=== PATIENT | female | born 1965 | race Caucasian/White ===

== ENCOUNTER 2017-07-15 09:17 | Emergency (ER) | payer OTHER ==
[2017-07-15] MEDS ORDERED: LORazepam 2 MG/ML INJ IV STA (09:36)
[2017-07-15] MEDS ORDERED: ASPIRIN 81 MG PO STA (09:36)
[2017-07-15 09:49] LABS: Basophils % (A) 1 %; CH 29.8; CHCM 32.8; Eosinophils # (A) 0.2 k/uL (0-0.7); Eosinophils % (A) 4 %; HCT 43.8 % (34.0-46.0); HDW 2.45; HGB 14.1 gm/dL (11.4-16.0); Luc # (Auto) 0.14; Luc % (Auto) 2; Lymphocytes # (A) 2.7 k/uL (1.0-4.8); Lymphocytes % (A) 45 %; MCH 29.3 pg (25.0-35.0); MCHC 32.1 g/dL (31.0-37.0); MCV 91.3 fL (80.0-100.0); Mean Platelet Volume 7.6; Monocytes # (A) 0.4 k/uL (0-1.0); Monocytes % (A) 7 %; Neutrophils # (A) 2.5 k/uL (1.3-7.7); Neutrophils % (A) 42 %; RBC 4.79 m/uL (3.80-5.40); RDW 12.5 % (11.5-15.5); WBC (Perox) 6.05
[2017-07-15 09:58] LABS: Prothrombin Time 10.4 sec (9.0-12.0)
[2017-07-15 10:02] LABS: ALT 35 U/L (9-52); AST 19 U/L (14-36); Alkaline Phosphatase 68 U/L (38-126); Anion Gap 9 mmol/L; Blood Urea Nitrogen 14 mg/dL (7-17); Calcium 8.9 mg/dL (8.4-10.2); Carbon Dioxide 23 mmol/L (22-30); Chloride 105 mmol/L (98-107); Glucose 125 mg/dL (74-99); Magnesium 1.8 mg/dL (1.6-2.3); Non-African American GFR(MDRD) >60 (>60 ml/min/1.73 sqM); Potassium 4.2 mmol/L (3.5-5.1); Sodium 137 mmol/L (137-145); Total Bilirubin 0.2 mg/dL (0.2-1.3)
--- NOTE | 2017-07-15 10:07 | XR ---
EXAMINATION TYPE: XR chest 2V DATE OF EXAM: 07/15/2017 COMPARISON: 06/06/2015 HISTORY: Shortness of breath TECHNIQUE: Frontal and lateral views of the chest are obtained. FINDINGS: Scattered senescent parenchymal changes noted. Hyperinflation compatible with COPD. No evidence for infiltrate. No evidence for atelectasis. Heart size is stable. Mediastinal structures are stable and grossly unremarkable. No evidence for hilar prominence. Degenerative changes dorsal spine. IMPRESSION: 1. No evidence for acute pulmonary disease.
[2017-07-15] MEDS ORDERED: IPRATROPIUM-ALBUTEROL 3 ML NEB INHALATION STA (10:37)
[2017-07-15] MEDS ORDERED: MORPHINE SULFATE 10 MG/ML SYRINGE IV STA (11:21)
--- NOTE | 2017-07-15 11:30 | US ---
EXAMINATION TYPE: US venous doppler duplex LE DATE OF EXAM: 07/15/2017 11:24 AM COMPARISON: NONE CLINICAL HISTORY: Pain. SIDE PERFORMED: Bilateral TECHNIQUE: The lower extremity deep venous system is examined utilizing real time linear array sonog serene with graded compression, doppler sonography and color-flow sonography. VESSELS IMAGED: External Iliac Vein (EIV) Common Femoral Vein Deep Femoral Vein Greater Saphenous Vein * Femoral Vein Popliteal Vein Small Saphenous Vein * not visualized Proximal Calf Veins (* superficial vessels) Technically difficult study, poor venous return, patient very sensitive in groin, large body habitus, SOB. Grayscale, color doppler, spectral doppler imaging performed of the deep veins of the lower extremiti es. There is normal flow, compressibility, vascular waveforms. Right Leg: Negative for DVT Left Leg: Negative for DVT IMPRESSION: No evidence for DVT at this time.
--- NOTE | 2017-07-15 11:51 | ED ---
Arrhythmia/Palpitations HPI - General Chief Complaint: Arrhythmia/Palpitations Stated Complaint: Tachycardia Time Seen by Provider: 07/15/17 09:23 Source: patient Mode of arrival: EMS Limitations: no limitations - History of Present Illness Initial Comments: Patient complains of intermittent palpitations, as well as cough. She has a sore throat as well. She has no fevers or chills. She denies chest pressure or pain. She has no dyspnea. She has no lightheadedness or dizziness. She has had blood clots in the past, but currently denies any extremity pain or swelling. Her symptoms have been present for couple days, off and on, with no specific exacerbating or relieving factors. She has no change in vision or hearing. She denies any sick contacts. She has had no long plane or car rides. She was not doing anything when the symptoms began. - Related Data Home Medications Medication Instructions Recorded Confirmed Baclofen [Lioresal] 20 mg PO TID PRN 07/15/17 07/15/17 Morphine Sulfate ER [Ms Contin 100 mg PO Q12HR 07/15/17 07/15/17 100Mg] oxyCODONE-APAP 10-325MG [Percocet 1 tab PO BID PRN 07/15/17 07/15/17 10-325 mg] Previous Rx's Medication Instructions Recorded Doxycycline Hyclate 100 mg PO BID #20 tab 07/15/17 Allergies Allergy/AdvReac Type Severity Reaction Status Date / Time iodine Allergy Severe Anaphylaxis Verified 07/15/17 09:38 hydroxyzine [From Vistaril] Allergy Unknown Verified 07/15/17 09:38 ketorolac tromethamine Allergy Anaphylaxis Verified 07/15/17 09:38 [From Toradol] tramadol Allergy Anaphylaxis Verified 07/15/17 09:38 Review of Systems ROS Statement: Those systems with pertinent positive or pertinent negative responses have been documented in the HPI. ROS Other: All systems not noted in ROS Statement are negative. Past Medical History Past Medical History: Asthma, COPD Additional Past Medical History / Comment(s): Degenerative Disk, Spina Bifida, neuropathy History of Any Multi-Drug Resistant Organisms: None Reported Past Surgical History: Hysterectomy Additional Past Surgical History / Comment(s): Left knee x3 left shoulder x2, neck fusion, wrist surgery due to laceration Past Psychological History: Anxiety, Bipolar, Depression Smoking Status: Current every day smoker Past Alcohol Use History: None Reported Past Drug Use History: None Reported General Exam Limitations: no limitations General appearance: alert, in no apparent distress Head exam: Present: atraumatic, normocephalic, normal inspection Eye exam: Present: normal appearance, PERRL, EOMI. Absent: scleral icterus, conjunctival injection, periorbital swelling ENT exam: Present: normal exam, mucous membranes moist Neck exam: Present: normal inspection. Absent: tenderness, meningismus, lymphadenopathy Respiratory exam: Present: normal lung sounds bilaterally. Absent: respiratory distress, wheezes, rales, rhonchi, stridor Cardiovascular Exam: Present: regular rate, normal rhythm, normal heart sounds. Absent: systolic murmur, diastolic murmur, rubs, gallop, clicks GI/Abdominal exam: Present: soft, normal bowel sounds. Absent: distended, tenderness, guarding, rebound, rigid Extremities exam: Present: normal inspection, full ROM, normal capillary refill. Absent: tenderness, pedal edema, joint swelling, calf tenderness Back exam: Present: normal inspection Neurological exam: Present: alert, oriented X3, CN II-XII intact Psychiatric exam: Present: normal affect, normal mood Skin exam: Present: warm, dry, intact, normal color. Absent: rash Course Vital Signs 07/15/17 07/15/17 07/15/17 09:20 09:25 10:45 Temperature 98.9 F Pulse Rate 74 79 Respiratory 18 20 Rate Blood Pressure 187/77 121/83 O2 Sat by Pulse 96 97 Oximetry 07/15/17 07/15/17 10:57 11:05 Temperature Pulse Rate 71 73 Respiratory 18 Rate Blood Pressure O2 Sat by Pulse Oximetry EKG Findings - EKG Comments: EKG Findings:: Twelve-lead EKG is obtained, interpreted by me showing ventricular rate 69 bpm, normal MI interval and QRS, and is, no ST elevation or depression, interpreted by me as normal sinus rhythm. Medical Decision Making - Medical Decision Making Patient complains of intermittent palpitations, cough. I gave her breathing treatment. Her labs are normal. Her EKG is normal. Her chest x-rays clear. There is no evidence of any acute emergency condition. I obtained a duplex the legs which is negative for DVT bilaterally. Clinically I think she likely has an upper respiratory infection. She could also have an exacerbation of COPD, likely related to an infectious processes. I will prescribe her doxycycline to go home on. There is no indication for further workup or admission the hospital at this time. She is stable for discharge. - Lab Data Result diagrams: 07/15/17 09:35 07/15/17 09:35 Lab Results 07/15/17 07/15/17 07/15/17 Range/Units 09:35 09:35 09:35 WBC 6.0 (3.8-10.6) k/uL RBC 4.79 (3.80-5.40) m/uL Hgb 14.1 (11.4-16.0) gm/dL Hct 43.8 (34.0-46.0) % MCV 91.3 (80.0-100.0) fL MCH 29.3 (25.0-35.0) pg MCHC 32.1 (31.0-37.0) g/dL RDW 12.5 (11.5-15.5) % Plt Count 206 (150-450) k/uL Neutrophils % 42 % Lymphocytes % 45 % Monocytes % 7 % Eosinophils % 4 % Basophils % 1 % Neutrophils # 2.5 (1.3-7.7) k/uL Lymphocytes # 2.7 (1.0-4.8) k/uL Monocytes # 0.4 (0-1.0) k/uL Eosinophils # 0.2 (0-0.7) k/uL Basophils # 0.0 (0-0.2) k/uL PT 10.4 (9.0-12.0) sec INR 1.0 (<1.2) APTT 24.0 (22.0-30.0) sec Sodium 137 (137-145) mmol/L Potassium 4.2 (3.5-5.1) mmol/L Chloride 105 (98-107) mmol/L Carbon Dioxide 23 (22-30) mmol/L Anion Gap 9 mmol/L BUN 14 (7-17) mg/dL Creatinine 0.76 (0.52-1.04) mg/dL Est GFR (MDRD) Af Amer >60 (>60 ml/min/1.73 sqM) Est GFR (MDRD) Non-Af >60 (>60 ml/min/1.73 sqM) Glucose 125 H (74-99) mg/dL Calcium 8.9 (8.4-10.2) mg/dL Magnesium 1.8 (1.6-2.3) mg/dL Total Bilirubin 0.2 (0.2-1.3) mg/dL AST 19 (14-36) U/L ALT 35 (9-52) U/L Alkaline Phosphatase 68 (38-126) U/L Troponin I (0.000-0.034) ng/mL Total Protein 7.0 (6.3-8.2) g/dL Albumin 3.8 (3.5-5.0) g/dL Urine Opiates Screen (NotDetected) Ur Oxycodone Screen (NotDetected) Urine Methadone Screen (NotDetected) Ur Propoxyphene Screen (NotDetected) Ur Barbiturates Screen (NotDetected) U Tricyclic Antidepress (NotDetected) Ur Phencyclidine Scrn (NotDetected) Ur Amphetamines Screen (NotDetected) U Methamphetamines Scrn (NotDetected) U Benzodiazepines Scrn (NotDetected) Urine Cocaine Screen (NotDetected) U Marijuana (THC) Screen (NotDetected) 07/15/17 07/15/17 Range/Units 09:35 09:51 WBC (3.8-10.6) k/uL RBC (3.80-5.40) m/uL Hgb (11.4-16.0) gm/dL Hct (34.0-46.0) % MCV (80.0-100.0) fL MCH (25.0-35.0) pg MCHC (31.0-37.0) g/dL RDW (11.5-15.5) % Plt Count (150-450) k/uL Neutrophils % % Lymphocytes % % Monocytes % % Eosinophils % % Basophils % % Neutrophils # (1.3-7.7) k/uL Lymphocytes # (1.0-4.8) k/uL Monocytes # (0-1.0) k/uL Eosinophils # (0-0.7) k/uL Basophils # (0-0.2) k/uL PT (9.0-12.0) sec INR (<1.2) APTT (22.0-30.0) sec Sodium (137-145) mmol/L Potassium (3.5-5.1) mmol/L Chloride (98-107) mmol/L Carbon Dioxide (22-30) mmol/L Anion Gap mmol/L BUN (7-17) mg/dL Creatinine (0.52-1.04) mg/dL Est GFR (MDRD) Af Amer (>60 ml/min/1.73 sqM) Est GFR (MDRD) Non-Af (>60 ml/min/1.73 sqM) Glucose (74-99) mg/dL Calcium (8.4-10.2) mg/dL Magnesium (1.6-2.3) mg/dL Total Bilirubin (0.2-1.3) mg/dL AST (14-36) U/L ALT (9-52) U/L Alkaline Phosphatase (38-126) U/L Troponin I <0.012 (0.000-0.034) ng/mL Total Protein (6.3-8.2) g/dL Albumin (3.5-5.0) g/dL Urine Opiates Screen Detected H (NotDetected) Ur Oxycodone Screen Detected H (NotDetected) Urine Methadone Screen Not Detected (NotDetected) Ur Propoxyphene Screen Not Detected (NotDetected) Ur Barbiturates Screen Not Detected (NotDetected) U Tricyclic Antidepress Not Detected (NotDetected) Ur Phencyclidine Scrn Not Detected (NotDetected) Ur Amphetamines Screen Not Detected (NotDetected) U Methamphetamines Scrn Not Detected (NotDetected) U Benzodiazepines Scrn Not Detected (NotDetected) Urine Cocaine Screen Not Detected (NotDetected) U Marijuana (THC) Screen Not Detected (NotDetected) Disposition Clinical Impression: Bronchitis Disposition: HOME SELF-CARE Condition: Good Instructions: Palpitations (ED), Upper Respiratory Infection (ED) Prescriptions: Doxycycline Hyclate 100 mg PO BID #20 tab Referrals: Asael Gonzales MD [Primary Care Provider] - 1-2 days
[2017-07-15 12:11] VITALS: BP 153/83; PULSE 79; TEMP 97.9
[2017-07-15 12:32] VITALS: RESP 20
== END 2017-07-15 12:31 | disposition home or self-care (01) ==
LOC: EC 09:17
DX: J44.9 Chronic obstructive pulmonary disease, unspecified (principal); F17.200 Nicotine dependence, unspecified, uncomplicated; Z91.048 Other nonmedicinal substance allergy status; Z88.6 Allergy status to analgesic agent; Z88.8 Allergy status to other drugs, medicaments and biological substances; Z79.891 Long term (current) use of opiate analgesic
CPT/HCPCS: 36415; 94640; 93005; 80053; 83735; 84484; 85025; 85610; 85730; 80306; 71020; 93970; 99285; 96374; 96375; J2060; J2270

== ENCOUNTER → 2017-08-05 | Outpatient (CLI) | payer OTHER ==
[~2017-08-05] MED LIST: DOBUTamine DRIP for NUC MED 500 MG in DEXTROSE/WATER 1 250ML.BAG IV ONE; DOBUTamine DRIP for NUC MED 500 MG/250 ML BAG IV ONE
--- NOTE | 2017-08-05 11:51 | ECHOS ---
STRESS ECHOCARDIOGRAM DOBUTAMINE ECHOCARDIOGRAPHIC STUDY DATE OF SERVICE: 08/05/2017 MEDICATIONS:: Albuterol, morphine, Percocet, Baclofen, aspirin, Xanax. BASELINE HEART RATE: 79 BASELINE BLOOD PRESSURE: 117/59 MAXIMUM HEART RATE: 144 MAXIMUM BLOOD PRESSURE: 139/44 85% MPHR: 141 100% MPHR: 166 METS: MAXIMUM STAGE REACHED: TOTAL EXERCISE TIME: INDICATIONS: Chest pain. CLINICAL INFORMATION: Dobutamine echocardiographic study was performed. Peak heart rate of 144 was achieved. Maximum blood pressure of 139/44 mmHg was noted. The resting EKG shows normal sinus rhythm with normal AK interval and QRS duration and normal ST-T waves. No ST-segment depression suggestive of ischemia is noted. Occasional PVCs were noted. The baseline echocardiographic images reveals normal left ventricular chamber size with normal left ventricular systolic function. In the immediate postexercise period, normal increase in the wall thickness and contractility is noted. FINAL IMPRESSION: This stress echocardiographic study is negative for stress-induced ischemia. The EKG portion of the stress test is not suggestive of ischemia. MMODL / IJN: [id number] /
== END | disposition home or self-care (01) ==
LOC: RADNMMAIN 09:13
PROVIDERS: ATTEND Family Medicine
DX: R07.9 Chest pain, unspecified (principal); I49.3 Ventricular premature depolarization
CPT/HCPCS: 93017; 93350

== ENCOUNTER → 2018-02-05 | Outpatient (CLI) | payer OTHER ==
--- NOTE | 2018-02-06 09:07 | ECHOF ---
Referral Reason:I50.9 Congestive Heart failure, R60.9 Edema MEASUREMENTS -------- HEIGHT: 162.6 cm WEIGHT: 103.0 kg BP: 143/92 RVIDd: 2.4 cm (< 3.3) IVSd: 1.4 cm (0.6 - 1.1) LVIDd: 4.3 cm (3.9 - 5.3) LVPWd: 1.2 cm (0.6 - 1.1) IVSs: 1.7 cm LVIDs: 3.0 cm LVPWs: 1.7 cm LAESV Index (A-L): 12.47 ml/m Ao Diam: 2.6 cm (2.0 - 3.7) AV Cusp: 1.7 cm (1.5 - 2.6) LA Diam: 3.1 cm (2.7 - 3.8) MV EXCURSION: 12.842 mm (> 18.000) MV EF SLOPE: 66 mm/s (70 - 150) EPSS: 0.5 cm MV E Teddy: 0.80 m/s MV DecT: 267 ms MV A Teddy: 0.85 m/s MV E/A Ratio: 0.94 RAP: 5.00 mmHg RVSP: 11.80 mmHg FINDINGS -------- Sinus rhythm. This was a technically adequate study. The left ventricular size is normal. There is mild concentric left ventricular hypertrophy. Overa ll left ventricular systolic function is normal with, an EF between 55 - 60 %. The right ventricle is normal in size and function. Normal LA size by volume 22+/-6 ml/m2. The right atrium is normal in size. Aortic valve is trileaflet and is mildly thickened. There is no evidence of aortic regurgitation. There is no evidence of aortic stenosis. The mitral valve leaflets are mildly thickened. There is trace mitral regurgitation. Trace tricuspid regurgitation present. Right ventricular systolic pressure is normal at < 35 mmHg. There is no evidence of pulmonary hypertension. The pulmonic valve was not well visualized. The aortic root size is normal. Normal inferior vena cava with normal inspiratory collapse consistent with estimated right atrial pre ssure of 5 mmHg. There is no pericardial effusion. CONCLUSIONS -------- 1. Sinus rhythm. 2. This was a technically adequate study. 3. The left ventricular size is normal. 4. There is mild concentric left ventricular hypertrophy. 5. Overall left ventricular systolic function is normal with, an EF between 55 - 60 %. 6. Normal LA size by volume 22+/-6 ml/m2. 7. Aortic valve is trileaflet and is mildly thickened. 8. The mitral valve leaflets are mildly thickened. 9. There is trace mitral regurgitation. 10. Trace tricuspid regurgitation present. 11. Right ventricular systolic pressure is normal at < 35 mmHg. 12. There is no evidence of pulmonary hypertension. 13. The pulmonic valve was not well visualized. 14. The aortic root size is normal. 15. There is no pericardial effusion. [employer] DEVELOPER: Rylan Bates RDCS
== END | disposition home or self-care (01) ==
LOC: RADECHMAIN 16:38
PROVIDERS: ATTEND Family Medicine
DX: I08.0 Rheumatic disorders of both mitral and aortic valves (principal); I50.9 Heart failure, unspecified
CPT/HCPCS: 93306

== ENCOUNTER → 2018-09-09 | Outpatient (CLI) | payer OTHER ==
[2018-09-09 12:40] LABS: INR 1.1 (<1.2); Prothrombin Time 11.8 sec (9.0-12.0)
[2018-09-09 19:01] LABS: Anion Gap 4.8 mmol/L (4.00-12.00); Carbon Dioxide 25.2 mmol/L (21.6-31.8); Potassium 4.5 mmol/L (3.5-5.5)
== END | disposition home or self-care (01) ==
LOC: LABWHC1 11:21
PROVIDERS: ATTEND Internal Medicine
DX: R60.0 Localized edema (principal); Z51.81 Encounter for therapeutic drug level monitoring; Z79.01 Long term (current) use of anticoagulants
CPT/HCPCS: 36415; 80051; 82565; 84520; 85610

== ENCOUNTER → 2018-11-16 | Outpatient (CLI) | payer OTHER ==
[2018-11-16 15:45] LABS: HGB 13.8 gm/dL (11.4-16.0); MCH 29.8 pg (25.0-35.0); MCHC 32.7 g/dL (31.0-37.0); MCV 91.1 fL (80.0-100.0); Mean Platelet Volume 8.6; Platelet Count 219 k/uL (150-450); RBC 4.62 m/uL (3.80-5.40); WBC 8.6 k/uL (3.8-10.6)
[2018-11-16 15:53] LABS: Prothrombin Time 10.3 sec (9.0-12.0)
--- NOTE | 2018-11-16 15:53 | XR ---
EXAMINATION TYPE: XR chest 2V DATE OF EXAM: 11/16/2018 COMPARISON: Chest x-ray July 15, 2017. HISTORY: Cough for a few months. TECHNIQUE: Frontal and lateral views of the chest are obtained. FINDINGS: There is chronic parenchymal change without suspicious focal air space opacity, pleural ef fusion, or pneumothorax seen. The cardiac silhouette size is stable and upper limits of normal. Ante rior fusion plate lower cervical spine is redemonstrated. Surgical screw fragment left humeral head i s again seen. IMPRESSION: Chronic parenchymal changes without suspicious acute pulmonary process.
[2018-11-16 18:42] LABS: Albumin/Globulin Ratio 1.54 (1.60-3.17); Anion Gap 8.7 mmol/L (4.00-12.00); Calcium 9.1 mg/dL (8.7-10.3); Carbon Dioxide 27.3 mmol/L (21.6-31.8); Globulin 2.6 g/dL (1.6-3.3); Potassium 4.1 mmol/L (3.5-5.5); Total Bilirubin 0.2 mg/dL (0.2-1.2); Total Protein 6.6 g/dL (6.2-8.2)
[2018-11-17 21:45] LABS: Hemoglobin A1C 7.4 % (4.0-6.0)
== END | disposition home or self-care (01) ==
LOC: LABWHC1 14:58
PROVIDERS: ATTEND Internal Medicine
DX: R91.8 Other nonspecific abnormal finding of lung field (principal); R05 Cough; R53.83 Other fatigue; Z79.01 Long term (current) use of anticoagulants
CPT/HCPCS: 36415; 71046; 80053; 82175; 82570; 83036; 83655; 83825; 84439; 84443; 85027; 85610

== ENCOUNTER → 2018-12-10 | Outpatient (CLI) | payer OTHER ==
--- NOTE | 2018-12-10 12:29 | XR ---
EXAMINATION TYPE: XR cervical spine limited DATE OF EXAM: 12/10/2018 TECHNIQUE: Frontal, lateral, and open mouth view of the cervical spine are obtained. HISTORY: pain R52 history of neck surgery COMPARISON: Cervical spine x-ray August 09, 2013 FINDINGS: The cervical spine is visualized in its entirety from C1 thru the top of T1 level, it is s table and straightened in alignment without evidence of acute fracture or dislocation. The pre-verte bral soft tissue remains within normal limits. The C1-C2 articulation is within normal limits on the open mouth view. Anterior fusion plate with ossific fusion C5-C6 level is redemonstrated. There is p rominent anterior spur superior C7 endplate redemonstrated. Vertebral body heights and disc space hei ghts above and below surgical levels are satisfactory. There is increasing left lateral spurring or h eterotopic ossification C5-C6 level. Overlying soft tissue is otherwise unremarkable. IMPRESSION: As above.
--- NOTE | 2018-12-10 12:30 | XR ---
EXAMINATION TYPE: XR thoracic spine 2V DATE OF EXAM: 12/10/2018 CLINICAL HISTORY: History of neck surgery with pain TECHNIQUE: Frontal, lateral, and swimmer's view of thoracic spine are obtained. COMPARISON: None. FINDINGS: Thoracic spine show straightened alignment on lateral images without evidence of acute frac ture or dislocation. Vertebral body heights and disc space heights are preserved. Anterior fusion pl ate lower cervical spine is identified. Visualized ribs are unremarkable. Osseous structures are so mewhat demineralized. IMPRESSION: As above.
== END | disposition home or self-care (01) ==
LOC: RADXRMAIN 11:41
PROVIDERS: ATTEND Internal Medicine
DX: M46.02 Spinal enthesopathy, cervical region (principal); M81.0 Age-related osteoporosis without current pathological fracture; Z98.1 Arthrodesis status
CPT/HCPCS: 72040; 72070

== ENCOUNTER → 2023-09-02 | Outpatient (CLI) | payer OTHER ==
[2023-09-02 14:35] VITALS: BP 147/76; PULSE 79; RESP 15; TEMP 98.5
--- NOTE | 2023-09-07 07:47 | P.PAINPG ---
PQRS Measure Charge Sheet Comment: HISTORY OF PRESENT ILLNESS: A 58 yr old female w daughter at side as a referral from Dr Streeter presents today w severe and chronic LBP secondary to DDD, spondylosis and facet arthropathy without myelopathy for evaluation. Pt states pain level is provoked at 10/10 in intensity, constant, localized in the lumbar spine, predominantly axial, burning in character w occasional shooting pain towards the BL feet. Pain is provoked by sitting/ standing/ walking. Pain is alleviated by medications (Percocet 10/325mg #60, MS ER 100mg #60, Flexeril, Ibu, Xanax 0.5mg #120), PT > 15 yrs ago, physician guided home exercise, moist heat, use of a walker for ambulatory assistance, repositioning and rest. Oswestry axial pain score at 44. She has no more narcotic medications, and pt & daughter stated that the last time she was abruptly stopped of narcotics she had a heart attack and was told by physicians she is never to off of narcotic medications. She said she has tried ESIs but fell on the floor upon standing and that physicians told her she is never to get ESIs again. She also stated she has Factor Leiden V and is on Coumadin and was told if she stops Coumadin for any reason she will get a stroke. However Factor Leiden V nor Coumadin use is not included in the documentation provided from Dr Streeter's office. Daughter states she is her mother's caregiver and wants to document that her mother has cancer so she can get medications. PMH: OA, Asthma, COPD, Spina Bifida, Neuropathy, MDD/ Anxiety/ Bipolar PSH: Hysterectomy, L Knee Arthroscopy x3, L Shoulder Surgery x2, Cervical Fusion, Wrist Surgery SH: Daily tobacco use, No ETOH abuse, No illicit drug use FH: Non contributory All: See list Meds: See list REVIEW OF ORGAN SYSTEMS: CONSTITUTIONAL: No fevers or chills. No recent weight loss. NEUROLOGICAL: + numbness and tingling along the distal extremities. No seizure disorders or headaches. MUSCULOSKELETAL: + pain PSYCHIATRIC: Denies current depression or suicidal thoughts. Physical Examinations : Constitutional : Cooperative , not in acute distress . Neurologic : Cranial nerve II to XII intact. No focal neurological deficits. Psychiatric : alert & oriented x 3. Matching mood & appropriate affect. Judgment & insight intact. Musculoskeletal : Cervical Spine Motor strength in the deltoid and biceps: Normal right side. Normal Left side Motor strength biceps and the wrist extensors: Normal right side . Normal left side Motor strength in the triceps muscle: Normal right side. Normal left side Deep tendon reflexes: Normal at the biceps. Normal at Brachioradialis. Normal at triceps Vertebral body tenderness to deep palpation over Cervical facet loading test: positive bilaterally Spurling test: positive bilaterally Neck distraction test: positive bilaterally Frank sign: positive bilaterally Lumbar spine Motor strength lower extremities ,thigh and legs 5/5 Right side , 5/5 Left side Deep tendon reflexes : Normal Knee Jerk. Normal Ankle Jerk Vertebral body tenderness over Ayoub Test positive Lumbar facet Loading Test: positive Right / positive Left Range of motion of the lumbar spine Flexion 30 degrees, extension 10 degrees Straight Leg Raise test: Left/ Right positive at degree Anisa test: positive right / positive left. Severe tenderness over the Sacroiliac joint on the Right / Left sides Gaenslen test: positive bilaterally Seated flexion test: positive bilaterally. Sacral spine : Severe tenderness over the Sacroiliac joint: right side / left side Range of motion: Flexion of the lumbar spine <60 degrees Range of motion: Extension of the lumbar spine <20 degrees Gaenslen's Test positive Anisa test: positive right side / left side Thigh Thrust Test Sacral Thrust Test Imaging: Cervical and thoracic x-rays from 12/10/18 reviewed Assessment/ Plan : Cervical post laminectomy syndrome, thoracic DDD Recommendation of PT x 6 wks. Discussed w pt and daughter/ caregiver at side the intenventional procedures at this clinic. All questions answered. I have spent greater than 30 minutes on patient care today. Dr Poe was available by phone for the evaluation of this patient. The time was used to review the medical records including relevant urine studies and Prescription history (MAPs), review of the available imaging, evaluation and examination of the patient, coordination of care with the medical staff and if applicable referring physicians, as well as creation of the medical record PQRS Narrative: Smoking Status Current every day smoker Home Medications: Ambulatory Orders Albuterol Nebulized (Conc) [Ventolin Nebulized (Conc)] 2.5 mg INHALATION Q6H PRN #30 neb 07/15/17 Baclofen [Lioresal] 20 mg PO TID PRN 07/15/17 Doxycycline Hyclate 100 mg PO BID #20 tab 07/15/17 Morphine Sulfate ER [Ms Contin 100Mg] 100 mg PO Q12HR 07/15/17 oxyCODONE-APAP 10-325MG [Percocet 10-325 mg] 1 tab PO BID PRN 07/15/17 Controlled Substance Measures - Controlled Substance Measures Is patient prescribed a controlled substance at discharge?: No
== END ==
LOC: PNWHC3 13:28
PROVIDERS: ATTEND Specialist
DX: M96.1 Postlaminectomy syndrome, not elsewhere classified (principal); M51.34 Other intervertebral disc degeneration, thoracic region; Z91.041 Radiographic dye allergy status; Z88.5 Allergy status to narcotic agent; Z88.6 Allergy status to analgesic agent
CPT/HCPCS: 99211

== ENCOUNTER 2023-11-15 21:47 | Emergency (ER) | payer OTHER ==
[2023-11-15 21:58] VITALS: TEMP 98.9
--- NOTE | 2023-11-15 23:05 | ED ---
General Adult HPI - General Chief complaint: Recheck/Abnormal Lab/Rx Stated complaint: back and neck pain Time Seen by Provider: 11/15/23 21:59 Source: patient Mode of arrival: ambulatory Limitations: no limitations - History of Present Illness Initial comments: 58-year-old female presenting with chief complaint of back pain. Patient states that she has had chronic back pain for several years, she states that her pain management doctor recently retired and she is out of her medication. She previously was taking 100 mg of morphine twice daily and Percocet twice daily for breakthrough pain. She states that when she was down to 1 morphine every 48 hours in order to stretch out her remaining supply, but she ran out on the . She has been going through withdrawal symptoms. She is trying to find a new pain management doctor. - Related Data Home Medications Medication Instructions Recorded Confirmed Baclofen [Lioresal] 20 mg PO TID PRN 07/15/17 07/15/17 Morphine Sulfate ER [Ms Contin 100 mg PO Q12HR 07/15/17 07/15/17 100Mg] oxyCODONE-APAP 10-325MG [Percocet 1 tab PO BID PRN 07/15/17 07/15/17 10-325 mg] Previous Rx's Medication Instructions Recorded Albuterol Nebulized (Conc) 2.5 mg INHALATION Q6H PRN #30 neb 07/15/17 [Ventolin Nebulized (Conc)] Doxycycline Hyclate 100 mg PO BID #20 tab 07/15/17 HYDROcodone/APAP 5-325MG [[place] 1 tab PO Q6HR PRN 3 Days #12 tab 11/15/23 5-325] Allergies Allergy/AdvReac Type Severity Reaction Status Date / Time iodine Allergy Severe Anaphylaxis Verified 11/15/23 21:56 hydroxyzine [From Vistaril] Allergy Unknown Verified 11/15/23 21:56 ketorolac tromethamine Allergy Anaphylaxis Verified 11/15/23 21:56 [From Toradol] tramadol Allergy Anaphylaxis Verified 11/15/23 21:56 Review of Systems ROS Statement: Those systems with pertinent positive or pertinent negative responses have been documented in the HPI. ROS Other: All systems not noted in ROS Statement are negative. Past Medical History Past Medical History: Asthma, COPD Additional Past Medical History / Comment(s): Degenerative Disk, Spina Bifida, neuropathy History of Any Multi-Drug Resistant Organisms: None Reported Past Surgical History: Hysterectomy Additional Past Surgical History / Comment(s): Left knee x3 left shoulder x2, neck fusion, wrist surgery due to laceration Past Psychological History: Anxiety, Bipolar, Depression Smoking Status: Current every day smoker Past Alcohol Use History: None Reported Past Drug Use History: None Reported General Exam Limitations: no limitations General appearance: alert, in no apparent distress Head exam: Present: atraumatic, normocephalic Eye exam: Present: normal appearance ENT exam: Present: normal oropharynx Neck exam: Present: normal inspection Respiratory exam: Absent: respiratory distress Cardiovascular Exam: Present: regular rate Extremities exam: Present: normal inspection, full ROM Neurological exam: Present: alert, oriented X3 Psychiatric exam: Present: normal affect, normal mood Skin exam: Present: warm, dry Course Vital Signs 11/15/23 11/15/23 21:55 23:20 Temperature 98.9 F Pulse Rate 112 H 92 Respiratory 20 13 Rate Blood Pressure 146/86 122/75 O2 Sat by Pulse 96 97 Oximetry Medical Decision Making - Medical Decision Making Was pt. sent in by a medical professional or institution (, PA, [employer], urgent care, hospital, or jail...) When possible be specific @ -No Did you speak to anyone other than the patient for history (EMS, parent, family, police, friend...)? What history was obtained from this source @ -No Did you review nursing and triage notes (agree or disagree)? Why? @ -I reviewed and agree with nursing and triage notes Were old charts reviewed (outside hosp., previous admission, EMS record, old EKG, old radiological studies, urgent care reports/EKG's, jail records)? Report findings @ -No old charts were reviewed Differential Diagnosis (chest pain, altered mental status, abdominal pain women, abdominal pain men, vaginal bleeding, weakness, fever, dyspnea, syncope, headache, dizziness, GI bleed, back pain, seizure, CVA, palpatations, mental health, musculoskeletal)? @ -Not applicable EKG interpreted by me (3pts min.). @ -As above X-rays interpreted by me (1pt min.). @ -None done CT interpreted by me (1pt min.). @ -None done U/S interpreted by me (1pt. min.). @ -None done What testing was considered but not performed or refused? (CT, X-rays, U/S, labs)? Why? @ -None What meds were considered but not given or refused? Why? @ -None Did you discuss the management of the patient with other professionals (professionals i.e. , PA, [employer], lab, RT, psych nurse, social services technician, woods superintendent, teacher, medical scientific officer, hospice case manager)? Give summary @ -No Was smoking cessation discussed for >3mins.? @ -No Was critical care preformed (if so, how long)? @ -No Were there social determinants of health that impacted care today? How? (Homelessness, low income, unemployed, alcoholism, drug addiction, transportation, low edu. Level, literacy, decrease access to med. care, [facility], rehab)? @ -No Was there de-escalation of care discussed even if they declined (Discuss DNR or withdrawal of care, Hospice)? DNR status @ -No What co-morbidities impacted this encounter? (DM, HTN, Smoking, COPD, CAD, Cancer, CVA, ARF, Chemo, Hep., AIDS, mental health diagnosis, sleep apnea, morbid obesity)? @ -None Was patient admitted / discharged? Hospital course, mention meds given and route, prescriptions, significant lab abnormalities, going to OR and other pertinent info. @ -58-year-old female presenting with chief complaint of chronic pain. Patient has history of chronic back pain, her pain management doctor retired and she recently ran out of her medication. She states that she is going through withdrawal. She was on 100 mg of morphine twice a day and Percocet twice a day. She is looking for a new pain management doctor. Patient is provided with short course of pain medication and referral to pain management. Discharged home. Follow-up with PCP. Report back to ER with any new or worsening symptoms. Discussed return parameters and answered all questions. Patient conveyed verbal understanding and agreed to the plan. I discussed this case in detail with my attending Dr. Bañuelos Undiagnosed new problem with uncertain prognosis? @ -No Drug Therapy requiring intensive monitoring for toxicity (Heparin, Nitro, Insulin, Cardizem)? @ -No Were any procedures done? @ -No Diagnosis/symptom? @ -Chronic pain Acute, or Chronic, or Acute on Chronic? @ -Acute on chronic Uncomplicated (without systemic symptoms) or Complicated (systemic symptoms)? @ -Uncomplicated Side effects of treatment? @ -No Exacerbation, Progression, or Severe Exacerbation? @ -No Poses a threat to life or bodily function? How? (Chest pain, [place], [place], pneumonia, PE, COPD, DKA, ARF, appy, cholecystitis, CVA, Diverticulitis, Homicidal, Suicid al, threat to staff... and all critical care pts) @ -No Disposition Clinical Impression: Chronic pain Disposition: HOME SELF-CARE Condition: Good Instructions (If sedation given, give patient instructions): Pain Management (ED) Additional Instructions: Follow-up with PCP. Report back to ER with any new or worsening symptoms. Prescriptions: HYDROcodone/APAP 5-325MG [[place] 5-325] 1 tab PO Q6HR PRN 3 Days #12 tab PRN Reason: Pain Is patient prescribed a controlled substance at d/c from ED?: No Referrals: Arash Boone MD [Primary Care Provider] - 1-2 days Bigg Poe MD [STAFF PHYSICIAN] - 1-2 days Time of Disposition: 23:02
[2023-11-15] MEDS: MORPHINE SULFATE 4 MG/ML SYRINGE IM STA (23:10)
[2023-11-15 23:41] VITALS: BP 122/75; PULSE 92; RESP 13
== END 2023-11-15 23:20 | disposition home or self-care (01) ==
LOC: EC 21:47
DX: G89.29 Other chronic pain (principal); M54.9 Dorsalgia, unspecified; J44.89 Other specified chronic obstructive pulmonary disease; F17.200 Nicotine dependence, unspecified, uncomplicated; Z86.59 Personal history of other mental and behavioral disorders; Z91.041 Radiographic dye allergy status; Z88.6 Allergy status to analgesic agent; Z88.5 Allergy status to narcotic agent; Z88.8 Allergy status to other drugs, medicaments and biological substances
CPT/HCPCS: 99283; 96372; J2270

== ENCOUNTER 2023-12-01 11:05 | Emergency (ER) | payer OTHER ==
[2023-12-01] MEDS: HYDROcodone/APAP 5-325MG 1 EACH TAB PO STA (11:46)
[2023-12-01 11:47] VITALS: BP 145/91; PULSE 84; RESP 16; TEMP 98.5
--- NOTE | 2023-12-01 11:48 | ED ---
Neck Injury/Pain HPI - General Chief Complaint: Neck Pain/Injury Stated Complaint: pain management Time Seen by Provider: 12/01/23 11:15 Mode of arrival: ambulatory Limitations: no limitations - History of Present Illness Initial Comments: Patient is a 58-year-old female presented to the ER with a chief complaint of medication refill. She states she typically follows up with pain management but her doctor recently retired. She was prescribed morphoine 100mg twice daily and percocet 10. She states she has been out for months. She reports she was seen here and received Waldwick which helped with her pain. She reports she is told to follow-up with in the next 1 to 2 weeks. Denies any bowel or bladder incontinence, saddle paresthesias, radiating pain, fevers, history of IV drug use or new symptoms with her pain. - Related Data Home Medications Medication Instructions Recorded Confirmed Baclofen [Lioresal] 20 mg PO TID PRN 07/15/17 07/15/17 Morphine Sulfate ER [Ms Contin 100 mg PO Q12HR 07/15/17 07/15/17 100Mg] oxyCODONE-APAP 10-325MG [Percocet 1 tab PO BID PRN 07/15/17 07/15/17 10-325 mg] Previous Rx's Medication Instructions Recorded Albuterol Nebulized (Conc) 2.5 mg INHALATION Q6H PRN #30 neb 07/15/17 [Ventolin Nebulized (Conc)] Doxycycline Hyclate 100 mg PO BID #20 tab 07/15/17 HYDROcodone/APAP 5-325MG [[place] 1 tab PO Q6HR PRN 3 Days #12 tab 11/15/23 5-325] Cyclobenzaprine [Flexeril] 5 mg PO TID PRN #15 tablet 12/01/23 HYDROcodone/APAP 5-325MG [[place] 5] 1 each PO Q6HR PRN #12 tab 12/01/23 Lidocaine 5% Patch [Lidoderm 5% 1 each TP DAILY #10 patch 12/01/23 Patch] Allergies Allergy/AdvReac Type Severity Reaction Status Date / Time iodine Allergy Severe Anaphylaxis Verified 11/15/23 21:56 hydroxyzine [From Vistaril] Allergy Unknown Verified 11/15/23 21:56 ketorolac tromethamine Allergy Anaphylaxis Verified 11/15/23 21:56 [From Toradol] tramadol Allergy Anaphylaxis Verified 11/15/23 21:56 Review of Systems ROS Statement: Those systems with pertinent positive or pertinent negative responses have been documented in the HPI. ROS Other: All systems not noted in ROS Statement are negative. Past Medical History Past Medical History: Asthma, COPD Additional Past Medical History / Comment(s): Degenerative Disk, Spina Bifida, neuropathy History of Any Multi-Drug Resistant Organisms: None Reported Past Surgical History: Hysterectomy Additional Past Surgical History / Comment(s): Left knee x3 left shoulder x2, neck fusion, wrist surgery due to laceration Past Psychological History: Anxiety, Bipolar, Depression Smoking Status: Current every day smoker Past Alcohol Use History: None Reported Past Drug Use History: None Reported General Exam Limitations: no limitations General appearance: alert, in no apparent distress Head exam: Present: atraumatic, normocephalic, normal inspection Eye exam: Present: normal appearance, PERRL, EOMI. Absent: scleral icterus, conjunctival injection, periorbital swelling ENT exam: Present: normal exam, mucous membranes moist Neck exam: Present: normal inspection. Absent: tenderness, meningismus, lymphadenopathy Respiratory exam: Present: normal lung sounds bilaterally. Absent: respiratory distress, wheezes, rales, rhonchi, stridor Cardiovascular Exam: Present: regular rate, normal rhythm, normal heart sounds. Absent: systolic murmur, diastolic murmur, rubs, gallop, clicks Back exam: Present: normal inspection Neurological exam: Present: alert, oriented X3, CN II-XII intact Psychiatric exam: Present: normal affect, normal mood Skin exam: Present: warm, dry, intact, normal color. Absent: rash Course Vital Signs 12/01/23 11:21 Temperature 98.5 F Pulse Rate 84 Respiratory 16 Rate Blood Pressure 145/91 O2 Sat by Pulse 93 L Oximetry Medical Decision Making - Medical Decision Making Was pt. sent in by a medical professional or institution (, PA, [employer]IER, urgent care, hospital, or assisted...) When possible be specific @ -No Did you speak to anyone other than the patient for history (EMS, parent, family, police, friend...)? What history was obtained from this source @ -No Did you review nursing and triage notes (agree or disagree)? Why? @ -I reviewed and agree with nursing and triage notes Were old charts reviewed (outside hosp., previous admission, EMS record, old EKG, old radiological studies, urgent care reports/EKG's, assisted records)? Report findings @ -No old charts were reviewed Differential Diagnosis (chest pain, altered mental status, abdominal pain women, abdominal pain men, vaginal bleeding, weakness, fever, dyspnea, syncope, headache, dizziness, GI bleed, back pain, seizure, CVA, palpatations, mental health, musculoskeletal)? @ -Differential Back Pain:Strain, zoster, cauda equina syndrome, epidural abscess, vertebral osteomyelitis, discitis, fracture, subluxation, disc herniation, DJD, spinal stenosis, dissection, AAA, pancreatitis, peptic ulcer disease, pyelonephritis, kidney stone, this is not meant to be an all-inclusive list. EKG interpreted by me (3pts min.). @ -None X-rays interpreted by me (1pt min.). @ -None done CT interpreted by me (1pt min.). @ -None done U/S interpreted by me (1pt. min.). @ -None done What testing was considered but not performed or refused? (CT, X-rays, U/S, labs)? Why? @ -CT considered but not performed due to no new symptoms. Patient refused as well. What meds were considered but not given or refused? Why? @ -None Did you discuss the management of the patient with other professionals (professionals i.e. , PA, G[employer] STATION CASHIER, lab, RT, psych nurse, nursing home social worker, manager investment, teacher, building drafting officer, case management director)? Give summary @ -No Was smoking cessation discussed for >3mins.? @ -No Was critical care preformed (if so, how long)? @ -No Were there social determinants of health that impacted care today? How? (Homelessness, low income, unemployed, alcoholism, drug addiction, transportation, low edu. Level, literacy, decrease access to med. care, long-term, rehab)? @ -No Was there de-escalation of care discussed even if they declined (Discuss DNR or withdrawal of care, Hospice)? DNR status @ -No What co-morbidities impacted this encounter? (DM, HTN, Smoking, COPD, CAD, Cancer, CVA, ARF, Chemo, Hep., AIDS, mental health diagnosis, sleep apnea, morbid obesity)? @ -None Was patient admitted / discharged? Hospital course, mention meds given and route, prescriptions, significant lab abnormalities, going to OR and other pertinent info. @ -Discharge. Patient is a 58-year-old female presented to ER with chief complaint of back pain. History and physical exam completed. Vital stable. Patient in no signs of acute distress and nontoxic-appearing. No red flag back pain symptoms indicative of cauda equina syndrome. CT not performed due to no change in symptoms and patient refused. Patient reports she is following up with Dr. Millard soon. Patient prescribed Waldwick, Flexeril and lidocaine pat ches. MAPs 340. Strict return parameters discussed. Patient discharged stable condition with follow-up to Dr. Millard. Patient expressed understanding and agreement with care plan. Case discussed with ED attending, Dr. Rodriguez. Case discussed with ED attending, Dr. Rodriguez. Undiagnosed new problem with uncertain prognosis? @ -No Drug Therapy requiring intensive monitoring for toxicity (Heparin, Nitro, Insulin, Cardizem)? @ -No Were any procedures done? @ -No Diagnosis/symptom? @ -Back pain Acute, or Chronic, or Acute on Chronic? @ -Chronic Uncomplicated (without systemic symptoms) or Complicated (systemic symptoms)? @ -Uncomplicated Side effects of treatment? @ -No Exacerbation, Progression, or Severe Exacerbation? @ -No Poses a threat to life or bodily function? How? (Chest pain, [place], [place], pneumonia, PE, COPD, DKA, ARF, appy, cholecystitis, CVA, Diverticulitis, Homicidal, Suicidal, threat to staff... and all critical care pts) @ -No Disposition Clinical Impression: Chronic pain Disposition: HOME SELF-CARE Condition: Stable Instructions (If sedation given, give patient instructions): Pain Management (ED), Chronic Pain (ED) Additional Instructions: Please follow-up with Dr. Millard as scheduled. Return to the ER for any new or worsening symptoms. Prescriptions: Cyclobenzaprine [Flexeril] 5 mg PO TID PRN #15 tablet PRN Reason: Muscle Spasm Lidocaine 5% Patch [Lidoderm 5% Patch] 1 each TP DAILY #10 patch HYDROcodone/APAP 5-325MG [[place] 5] 1 each PO Q6HR PRN #12 tab PRN Reason: Pain Is patient prescribed a controlled substance at d/c from ED?: Yes When asked, does pt state using other controlled substances?: No If prescribed controlled substance>3 days was MAPS reviewed?: Prescribed <3 Days If opioid is for acute pain is fill amount 7 days or less?: Yes If Rx opioid, was Start Talking consent form obtained?: Yes Referrals: Priyanka Boone DO [Primary Care Provider] - 1-2 days Julia Millard MD [Medical Doctor] - 1-2 days Time of Disposition: 11:47
== END 2023-12-01 11:54 | disposition home or self-care (01) ==
LOC: EC 11:05
DX: G89.29 Other chronic pain (principal); M54.9 Dorsalgia, unspecified; F17.200 Nicotine dependence, unspecified, uncomplicated; Z91.041 Radiographic dye allergy status; Z88.6 Allergy status to analgesic agent; Z88.5 Allergy status to narcotic agent; Z88.8 Allergy status to other drugs, medicaments and biological substances
CPT/HCPCS: 99283

== ENCOUNTER 2023-12-12 14:43 | Emergency (ER) | payer OTHER ==
[2023-12-12 15:39] VITALS: RESP 16; TEMP 98.2
--- NOTE | 2023-12-12 15:40 | ED ---
General Adult HPI - General Chief complaint: Neck Pain/Injury Stated complaint: neck pain Time Seen by Provider: 12/12/23 15:05 Source: patient, RN notes reviewed Mode of arrival: ambulatory Limitations: no limitations - History of Present Illness Initial comments: 58-year-old female presents to the emergency department for evaluation of neck pain. Patient states that she has a history of chronic neck issues with a history of spinal cord injury. She reports having plates and screws in her back. Reports her previous spine surgeon has retired so she is working on getting in with [facility]. She also reports that her pain management is no longer in practice and she has an appointment with a new painter chassis on February 04. At this point she is out of her medication for pain control. She denies any new numbness or tingling in her extremities, weakness in her extremities. - Related Data Home Medications Medication Instructions Recorded Confirmed Baclofen [Lioresal] 20 mg PO TID PRN 07/15/17 07/15/17 Morphine Sulfate ER [Ms Contin 100 mg PO Q12HR 07/15/17 07/15/17 100Mg] oxyCODONE-APAP 10-325MG [Percocet 1 tab PO BID PRN 07/15/17 07/15/17 10-325 mg] Previous Rx's Medication Instructions Recorded Albuterol Nebulized (Conc) 2.5 mg INHALATION Q6H PRN #30 neb 07/15/17 [Ventolin Nebulized (Conc)] Doxycycline Hyclate 100 mg PO BID #20 tab 07/15/17 HYDROcodone/APAP 5-325MG [[place] 1 tab PO Q6HR PRN 3 Days #12 tab 11/15/23 5-325] Cyclobenzaprine [Flexeril] 5 mg PO TID PRN #15 tablet 12/01/23 HYDROcodone/APAP 5-325MG [[place] 5] 1 each PO Q6HR PRN #12 tab 12/01/23 Lidocaine 5% Patch [Lidoderm 5% 1 each TP DAILY #10 patch 12/01/23 Patch] Cyclobenzaprine [Flexeril] 10 mg PO TID PRN #15 tab 12/12/23 HYDROcodone/APAP 5-325MG [[place] 5] 1 each PO Q6HR PRN #12 tab 12/12/23 predniSONE 50 mg PO DAILY #5 tab 12/12/23 Allergies Allergy/AdvReac Type Severity Reaction Status Date / Time iodine Allergy Severe Anaphylaxis Verified 11/15/23 21:56 hydroxyzine [From Vistaril] Allergy Unknown Verified 11/15/23 21:56 ketorolac tromethamine Allergy Anaphylaxis Verified 11/15/23 21:56 [From Toradol] tramadol Allergy Anaphylaxis Verified 11/15/23 21:56 Review of Systems ROS Statement: Those systems with pertinent positive or pertinent negative responses have been documented in the HPI. ROS Other: All systems not noted in ROS Statement are negative. Past Medical History Past Medical History: Asthma, COPD Additional Past Medical History / Comment(s): Degenerative Disk, Spina Bifida, neuropathy History of Any Multi-Drug Resistant Organisms: None Reported Past Surgical History: Hysterectomy Additional Past Surgical History / Comment(s): Left knee x3 left shoulder x2, neck fusion, wrist surgery due to laceration Past Psychological History: Anxiety, Bipolar, Depression Smoking Status: Current every day smoker Past Alcohol Use History: None Reported Past Drug Use History: None Reported General Exam Limitations: no limitations General appearance: alert, in no apparent distress Head exam: Present: atraumatic, normocephalic, normal inspection Eye exam: Present: normal appearance, PERRL, EOMI. Absent: scleral icterus, conjunctival injection, periorbital swelling ENT exam: Present: normal exam, mucous membranes moist Neck exam: Present: normal inspection. Absent: tenderness, meningismus, lymphadenopathy Respiratory exam: Present: normal lung sounds bilaterally Cardiovascular Exam: Present: regular rate, normal rhythm, normal heart sounds. Absent: systolic murmur, diastolic murmur, rubs, gallop, clicks GI/Abdominal exam: Present: soft, normal bowel sounds. Absent: distended, tenderness, guarding, rebound, rigid Extremities exam: Present: normal inspection, full ROM, normal capillary refill. Absent: tenderness, pedal edema, joint swelling, calf tenderness Back exam: Present: normal inspection Neurological exam: Present: alert, oriented X3 Psychiatric exam: Present: normal affect, normal mood Skin exam: Present: warm, dry, intact, normal color. Absent: rash Course Vital Signs 12/12/23 12/12/23 12/12/23 14:59 15:12 15:48 Temperature 98.3 F 98.2 F Pulse Rate 105 H 100 104 H Respiratory 20 16 16 Rate Blood Pressure 186/109 175/107 131/90 O2 Sat by Pulse 97 95 98 Oximetry 12/12/23 18:00 Temperature Pulse Rate 78 Respiratory 16 Rate Blood Pressure 131/74 O2 Sat by Pulse 97 Oximetry Medical Decision Making - Medical Decision Making Was pt. sent in by a medical professional or institution (VALENTINE Bernardo, DAYCARE DIRECTOR, urgent care, hospital, or alf...) When possible be specific @ -No Did you speak to anyone other than the patient for history (EMS, parent, family, police, friend...)? What history was obtained from this source @ -No Did you review nursing and triage notes (agree or disagree)? Why? @ -I reviewed and agree with nursing and triage notes Were old charts reviewed (outside hosp., previous admission, EMS record, old EKG, old radiological studies, urgent care reports/EKG's, alf records)? Report findings @ -No old charts were reviewed Differential Diagnosis (chest pain, altered mental status, abdominal pain women, abdominal pain men, vaginal bleeding, weakness, fever, dyspnea, syncope, headache, dizziness, GI bleed, back pain, seizure, CVA, palpatations, mental health, musculoskeletal)? @ -Differential Back Pain: Strain, zoster, cauda equina syndrome, epidural abscess, vertebral osteomyelitis, discitis, fracture, subluxation, disc herniation, DJD, spinal stenosis, dissection, AAA, pancreatitis, peptic ulcer disease, pyelonephritis, kidney stone, this is not meant to be an all-inclusive list. EKG interpreted by me (3pts min.). @ -None X-rays interpreted by me (1pt min.). @ -X-ray of the cervical spine shows no evidence of acute fracture, cervical changes intact, foraminal encroachment CT interpreted by me (1pt min.). @ -None done U/S interpreted by me (1pt. min.). @ -None done What testing was considered but not performed or refused? (CT, X-rays, U/S, labs)? Why? @ -None What meds were considered but not given or refused? Why? @ -None Did you discuss the management of the patient with other professionals (professionals i.e. VALENTINE Bernardo, DAYCARE DIRECTOR, lab, RT, psych nurse, social media manager, bill board poster, teacher, juvenile corrections officer, caseworker protective services)? Give summary @ -No Was smoking cessation discussed for >3mins.? @ -No Was critical care preformed (if so, how long)? @ -No Were there social determinants of health that impacted care today? How? (Homelessness, low income, unemployed, alcoholism, drug addiction, transportation, low edu. Level, literacy, decrease access to med. care, fdc, rehab)? @ -No Was there de-escalation of care discussed even if they declined (Discuss DNR or withdrawal of care, Hospice)? DNR status @ -No What co-morbidities impacted this encounter? (DM, HTN, Smoking, COPD, CAD, Cancer, CVA, ARF, Chemo, Hep., AIDS, mental health diagnosis, sleep apnea, morbid obesity)? @ -None Was patient admitted / discharged? Hospital course, mention meds given and route, prescriptions, significant lab abnormalities, going to OR and other pertinent info. @ -Discharge. Patient presented to the emergency department for evaluation of neck pain. She has a history of chronic neck pain and follows with orthopedics for this. She has had surgery on her neck in the past. She is concerned about the hardware being in place. X-rays obtained which show hardware intact, no acute fracture, foraminal encroachment. Patient was provided medication for pain control in the ED. She was also provided a short course of medication for home. Advised to follow-up with her pain remote control mirror installer and accounts receivable specialist. Patient is understanding agreeable with plan. Patient stable at time of discharge. Case discussed with Dr. Rodriguez. Undiagnosed new problem with uncertain prognosis? @ -No Drug Therapy requiring intensive monitoring for toxicity (Heparin, Nitro, Insulin, Cardizem)? @ -No Were any procedures done? @ -No Diagnosis/symptom? @ -Neck pain Acute, or Chronic, or Acute on Chronic? @ -Acute on chronic Uncomplicated (without systemic symptoms) or Complicated (systemic symptoms)? @ -uncomplicated Side effects of treatment? @ -No Exacerbation, Progression, or Severe Exacerbation? @ -No Poses a threat to life or bodily function? How? (Chest pain, [place], [place], pneumonia, PE, COPD, DKA, ARF, appy, cholecystitis, CVA, Diverticulitis, Homicidal, Suicidal, threat to staff... and all critical care pts) @ -No Disposition Clinical Impression: Neck pain Disposition: HOME SELF-CARE Condition: Stable Instructions (If sedation given, give patient instructions): Cervical Strain (ED) Additional Instructions: Please follow up with your primary care provider and pain specialist. Return to the ER for new or worsening symptoms. Prescriptions: Cyclobenzaprine [Flexeril] 10 mg PO TID PRN #15 tab PRN Reason: Muscle Spasm HYDROcodone/APAP 5-325MG [[place] 5] 1 each PO Q6HR PRN #12 tab PRN Reason: Pain predniSONE 50 mg PO DAILY #5 tab Is patient prescribed a controlled substance at d/c from ED?: Yes When asked, does pt state using other controlled substances?: No If prescribed controlled substance>3 days was MAPS reviewed?: Prescribed <3 Days Referrals: Priyanka Boone DO [Primary Care Provider] - 1-2 days
[2023-12-12] MEDS: LIDOCAINE 4% PATCH TOPICAL ONE (15:44)
[2023-12-12] MEDS: MORPHINE SULFATE 4 MG/ML SYRINGE IM STA (16:06)
--- NOTE | 2023-12-12 16:23 | XR ---
EXAMINATION TYPE: XR cervical spine comp DATE OF EXAM: 12/12/2023 COMPARISON: 12/10/2018 HISTORY: Pain TECHNIQUE: Four views are submitted. FINDINGS: The odontoid is intact. There are no compression deformities. The prevertebral soft tissue structur es are within normal limits. Postsurgical change compatible with ACDF. Diffuse osteopenia with degen erative change C6-C7 and C7-T1. Multilevel facet arthropathy. Upper lungs are clear with findings suggestive of chronic interstitial lung disease. Soft tissue ossi fication adjacent to the lateral margin of the cervical spine on the left is stable may be related to soft tissue ossification or hyperostosis. There appears to be foraminal encroachment at C6-C7 bilaterally and at C4-5 and C5-C6 on the left. IMPRESSION: 1. Postsurgical change with no definite interval changes compared to the prior exam. 2. There is multilevel foraminal encroachment.
[2023-12-12] MEDS: MORPHINE SULFATE 2 MG/ML SYRINGE IM ONE (17:45)
[2023-12-12] MEDS: ACET/COD 300 MG/30 MG STARTER PACK 6 TAB BTL PO STA (18:05)
[2023-12-12 18:22] VITALS: BP 131/74; PULSE 78
== END 2023-12-12 18:00 | disposition home or self-care (01) ==
LOC: EC 14:43
DX: G89.29 Other chronic pain (principal); M54.2 Cervicalgia; F17.200 Nicotine dependence, unspecified, uncomplicated; Z88.5 Allergy status to narcotic agent; Z88.8 Allergy status to other drugs, medicaments and biological substances; Z91.041 Radiographic dye allergy status
CPT/HCPCS: 72050; 99284; 96372 ×2; J2270 ×2

== ENCOUNTER 2023-12-27 17:41 | Emergency (ER) | payer OTHER ==
--- NOTE | 2023-12-27 19:00 | ED ---
Back Pain HPI - General Chief Complaint: Back Pain/Injury Stated Complaint: Pain management Time Seen by Provider: 12/27/23 17:55 Source: patient Limitations: no limitations - History of Present Illness Initial Comments: 58-year-old female presenting to the ED with complaints of neck and back pain. Patient reports a history of chronic neck/back pain. Patient notes associated u rinary incontinence in which she has to wear a diaper for this where she uncontrollably dribbles of urine occasionally especially with cough and sneeze. Notes no new worsening of this. Denies saddle anesthesia. Reports pain is chronic in nature and states that she used to follow with a "spine diet" however this physician has retired and notes an upcoming appointment with Dr. Millard of [facility] on January 31. States that her primary care provider will not prescribe her pain medications and is just here for pain control. No recent injury or trauma or acute worsening of her symptoms. Denies fever or chills. No other complaints at this time. - Related Data Home Medications Medication Instructions Recorded Confirmed Baclofen [Lioresal] 20 mg PO TID PRN 07/15/17 07/15/17 Morphine Sulfate ER [Ms Contin 100 mg PO Q12HR 07/15/17 07/15/17 100Mg] oxyCODONE-APAP 10-325MG [Percocet 1 tab PO BID PRN 07/15/17 07/15/17 10-325 mg] Previous Rx's Medication Instructions Recorded Albuterol Nebulized (Conc) 2.5 mg INHALATION Q6H PRN #30 neb 07/15/17 [Ventolin Nebulized (Conc)] Doxycycline Hyclate 100 mg PO BID #20 tab 07/15/17 HYDROcodone/APAP 5-325MG [Avant 1 tab PO Q6HR PRN 3 Days #12 tab 11/15/23 5-325] Cyclobenzaprine [Flexeril] 5 mg PO TID PRN #15 tablet 12/01/23 HYDROcodone/APAP 5-325MG [Avant 5] 1 each PO Q6HR PRN #12 tab 12/01/23 Lidocaine 5% Patch [Lidoderm 5% 1 each TP DAILY #10 patch 12/01/23 Patch] Cyclobenzaprine [Flexeril] 10 mg PO TID PRN #15 tab 12/12/23 HYDROcodone/APAP 5-325MG [Avant 5] 1 each PO Q6HR PRN #12 tab 12/12/23 predniSONE 50 mg PO DAILY #5 tab 12/12/23 HYDROcodone/APAP 5-325MG [Avant 1 tab PO Q6HR PRN 3 Days #12 tab 12/27/23 5-325] Allergies Allergy/AdvReac Type Severity Reaction Status Date / Time iodine Allergy Severe Anaphylaxis Verified 12/27/23 17:51 hydroxyzine [From Vistaril] Allergy Unknown Verified 12/27/23 17:51 ketorolac tromethamine Allergy Anaphylaxis Verified 12/27/23 17:51 [From Toradol] tramadol Allergy Anaphylaxis Verified 12/27/23 17:51 Review of Systems ROS Statement: Those systems with pertinent positive or pertinent negative responses have been documented in the HPI. ROS Other: All systems not noted in ROS Statement are negative. Past Medical History Past Medical History: Asthma, COPD Additional Past Medical History / Comment(s): Degenerative Disk, Spina Bifida, neuropathy History of Any Multi-Drug Resistant Organisms: None Reported Past Surgical History: Hysterectomy Additional Past Surgical History / Comment(s): Left knee x3 left shoulder x2, neck fusion, wrist surgery due to laceration Past Psychological History: Anxiety, Bipolar, Depression Smoking Status: Current every day smoker Past Alcohol Use History: None Reported Past Drug Use History: None Reported General Exam Limitations: no limitations General appearance: alert, in no apparent distress Eye exam: Present: normal appearance Neck exam: Present: normal inspection Respiratory exam: Present: normal lung sounds bilaterally Cardiovascular Exam: Present: regular rate GI/Abdominal exam: Present: soft Extremities exam: Present: normal inspection, other (Strength and sensation intact in bilateral upper lower extremities. Ambulates without significant difficulty.) Neurological exam: Present: alert, oriented X3 Skin exam: Present: warm, dry Course Vital Signs 12/27/23 17:47 Temperature 98.0 F Pulse Rate 113 H Respiratory 18 Rate Blood Pressure 127/83 O2 Sat by Pulse 95 Oximetry Medical Decision Making - Medical Decision Making Was pt. sent in by a medical professional or institution (, PA, UNDERWATER WELDER, urgent care, hospital, or penitentiary...) When possible be specific @ -No Did you speak to anyone other than the patient for history (EMS, parent, family, police, friend...)? What history was obtained from this source @ -No Did you review nursing and triage notes (agree or disagree)? Why? @ -I reviewed and agree with nursing and triage notes Were old charts reviewed (outside hosp., previous admission, EMS record, old EKG, old radiological studies, urgent care reports/EKG's, penitentiary records)? Report findings @ -Reviewed prior chart showing visit here on 12/12/2023. At this time received 12 Avant fives. Also had an unremarkable cervical spine x-ray at this time. Differential Diagnosis (chest pain, altered mental status, abdominal pain women, abdominal pain men, vaginal bleeding, weakness, fever, dyspnea, syncope, headache, dizziness, GI bleed, back pain, seizure, CVA, palpatations, mental health, musculoskeletal)? @ -Differential Musculoskeletal Muscular strain, contusion, ligament sprain, fracture, arthritis, septic arthritis, bursitis, cellulitis, muscle spasm, nerve compression, DVT, arterial occlusion, herpes zoster, electrolyte abnormality, tumor.... This is not meant to be in all inclusive list EKG interpreted by me (3pts min.). @ -None X-rays interpreted by me (1pt min.). @ -None done CT interpreted by me (1pt min.). @ -None done U/S interpreted by me (1pt. min.). @ -None done What testing was considered but not performed or refused? (CT, X-rays, U/S, labs)? Why? @ -Imaging was considered however at this time patient reports pain is chronic in nature and she states that she would only like pain control. Additionally, reports no recent worsening of her symptoms. What meds were considered but not given or refused? Why? @ -None Did you discuss the management of the patient with other professionals (professionals i.e. , PA, UNDERWATER WELDER, lab, RT, psych nurse, social security assessor, tumbling and rolling supervisor, teacher, financial services officer, assistant case manager)? Give summary @ -No Was smoking cessation discussed for >3mins.? @ -No Was critical care preformed (if so, how long)? @ -No Were there social determinants of health that impacted care today? How? (Homelessness, low income, unemployed, alcoholism, drug addiction, transportation, low edu. Level, literacy, decrease access to med. care, senior living, rehab)? @ -No Was there de-escalation of care discussed even if they declined (Discuss DNR or withdrawal of care, Hospice)? DNR status @ -No What co-morbidities impacted this encounter? (DM, HTN, Smoking, COPD, CAD, Cancer, CVA, ARF, Chemo, Hep., AIDS, mental health diagnosis, sleep apnea, morbid obesity)? @ -None Was patient admitted / discharged? Hospital course, mention meds given and route, prescriptions, significant lab abnormalities, going to OR and other pertinent info. @ -Discharge 58-year-old female presenting to the ED with complaints of chronic neck and back pain with no recent worsening. No new injury or trauma as well. Reports that she would just like pain control. Patient provided analgesia here in the ED and provided short course of Avant as well. Patient was discharged home in stable condition and also provided a referral to see orthopedics. Discharged home in stable condition. Discussed return precautions with patient who verbalized agreement. Undiagnosed new problem with uncertain prognosis? @ -No Drug Therapy requiring intensive monitoring for toxicity (Heparin, Nitro, Insulin, Cardizem)? @ -No Were any procedures done? @ -No Diagnosis/symptom? @ -Neck pain/back pain Acute, or Chronic, or Acute on Chronic? @ -Acute on chronic Uncomplicated (without systemic symptoms) or Complicated (systemic symptoms)? @ -Uncomplicated Side effects of treatment? @ -No Exacerbation, Progression, or Severe Exacerbation? @ -No Poses a threat to life or bodily function? How? (Chest pain, [place], [place], pneumonia, PE, COPD, DKA, ARF, appy, cholecystitis, CVA, Diverticulitis, Homicidal, Suicidal, threat to staff... and all critical care pts) @ -No Disposition Clinical Impression: Back pain Disposition: HOME SELF-CARE Condition: Good Additional Instructions: Please return to the Emergency Department if symptoms worsen or any other concerns. Please follow up with Dr. Millard as scheduled. Please also follow-up with orthopedics. Prescriptions: HYDROcodone/APAP 5-325MG [Avant 5-325] 1 tab PO Q6HR PRN 3 Days #12 tab PRN Reason: Pain Is patient prescribed a controlled substance at d/c from ED?: Yes When asked, does pt state using other controlled substances?: No If prescribed controlled substance>3 days was MAPS reviewed?: Prescribed <3 Days (MAPS reviewed. Last opiate prescription was for Twelve (12) Avant 5 filled 12/14/23) Referrals: Priyanka Boone DO [Primary Care Provider] - 1-2 days Time of Disposition: 19:04
[2023-12-27] MEDS: ACET/COD 300 MG/30 MG STARTER PACK 6 TAB BTL PO STA (19:17)
[2023-12-27] MEDS: HYDROmorphone 1 MG/ML 1 ML SYRINGE IM STA (19:18)
[2023-12-27 19:49] VITALS: BP 128/85; PULSE 93; RESP 16; TEMP 98.4
== END 2023-12-27 19:24 | disposition home or self-care (01) ==
LOC: EC 17:41
DX: G89.29 Other chronic pain (principal); M54.9 Dorsalgia, unspecified; M54.2 Cervicalgia; Z88.5 Allergy status to narcotic agent; Z88.6 Allergy status to analgesic agent; Z88.8 Allergy status to other drugs, medicaments and biological substances
CPT/HCPCS: 99283; 96372; J1170

== ENCOUNTER 2024-01-09 15:40 | Emergency (ER) | payer OTHER ==
[2024-01-09 15:46] VITALS: TEMP 98.5
[2024-01-09] MEDS: HYDROcodone/APAP 5-325MG 1 EACH TAB PO STA (16:15)
--- NOTE | 2024-01-09 16:15 | ED ---
ENT HPI - General Chief complaint: ENT Stated complaint: Throat Pain Time Seen by Provider: 01/09/24 15:50 Source: patient, RN notes reviewed Mode of arrival: ambulatory Limitations: no limitations - History of Present Illness Initial comments: 58-year-old female presenting with sore throat x 3 days. Patient states she feels her voice is hoarse. Denies cough, rhinorrhea, fever. She is able to swallow and tolerate orals well. She is also here for pain management for chronic neck and back pain. 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 - Related Data Home Medications Medication Instructions Recorded Confirmed Baclofen [Lioresal] 20 mg PO TID PRN 07/15/17 07/15/17 Morphine Sulfate ER [Ms Contin 100 mg PO Q12HR 07/15/17 07/15/17 100Mg] oxyCODONE-APAP 10-325MG [Percocet 1 tab PO BID PRN 07/15/17 07/15/17 10-325 mg] Previous Rx's Medication Instructions Recorded Albuterol Nebulized (Conc) 2.5 mg INHALATION Q6H PRN #30 neb 07/15/17 [Ventolin Nebulized (Conc)] Doxycycline Hyclate 100 mg PO BID #20 tab 07/15/17 HYDROcodone/APAP 5-325MG [[place] 1 tab PO Q6HR PRN 3 Days #12 tab 11/15/23 5-325] Cyclobenzaprine [Flexeril] 5 mg PO TID PRN #15 tablet 12/01/23 HYDROcodone/APAP 5-325MG [[place] 5] 1 each PO Q6HR PRN #12 tab 12/01/23 Lidocaine 5% Patch [Lidoderm 5% 1 each TP DAILY #10 patch 12/01/23 Patch] Cyclobenzaprine [Flexeril] 10 mg PO TID PRN #15 tab 12/12/23 HYDROcodone/APAP 5-325MG [[place] 5] 1 each PO Q6HR PRN #12 tab 12/12/23 predniSONE 50 mg PO DAILY #5 tab 12/12/23 HYDROcodone/APAP 5-325MG [[place] 1 tab PO Q6HR PRN 3 Days #12 tab 12/27/23 5-325] Cyclobenzaprine [Flexeril] 10 mg PO TID PRN #15 tab 01/09/24 HYDROcodone/APAP 7.5-325MG [[place] 1 tab PO Q6HR PRN 3 Days #12 tab 01/09/24 7.5-325] Allergies Allergy/AdvReac Type Severity Reaction Status Date / Time iodine Allergy Severe Anaphylaxis Verified 01/09/24 15:45 hydroxyzine [From Vistaril] Allergy Unknown Verified 01/09/24 15:45 ketorolac tromethamine Allergy Anaphylaxis Verified 01/09/24 15:45 [From Toradol] tramadol Allergy Anaphylaxis Verified 01/09/24 15:45 Review of Systems ROS Statement: Those systems with pertinent positive or pertinent negative responses have been documented in the HPI. ROS Other: All systems not noted in ROS Statement are negative. Past Medical History Past Medical History: Asthma, COPD Additional Past Medical History / Comment(s): Degenerative Disk, Spina Bifida, neuropathy History of Any Multi-Drug Resistant Organisms: None Reported Past Surgical History: Hysterectomy Additional Past Surgical History / Comment(s): Left knee x3 left shoulder x2, neck fusion, wrist surgery due to laceration Past Psychological History: Anxiety, Bipolar, Depression Smoking Status: Current every day smoker Past Alcohol Use History: None Reported Past Drug Use History: None Reported General Exam Limitations: no limitations General appearance: alert, in no apparent distress Head exam: Present: atraumatic, normocephalic, normal inspection Eye exam: Present: normal appearance, PERRL, EOMI. Absent: scleral icterus, conjunctival injection, periorbital swelling ENT exam: Present: normal exam, normal oropharynx, mucous membranes moist, TM's normal bilaterally Neck exam: Present: normal inspection. Absent: tenderness, meningismus, lymphadenopathy Respiratory exam: Present: normal lung sounds bilaterally. Absent: respiratory distress, wheezes, rales, rhonchi, stridor Cardiovascular Exam: Present: regular rate, normal rhythm, normal heart sounds. Absent: systolic murmur, diastolic murmur, rubs, gallop, clicks Neurological exam: Present: alert, oriented X3 Psychiatric exam: Present: normal affect, normal mood Course Vital Signs 01/09/24 01/09/24 15:43 17:29 Temperature 98.5 F Pulse Rate 104 H 93 Respiratory 22 18 Rate Blood Pressure 156/99 128/80 O2 Sat by Pulse 97 95 Oximetry Medical Decision Making - Medical Decision Making Was pt. sent in by a medical professional or institution ([facility]ENT[facility] Bernardo, CUSTOMER COMPLAINT SERVICE SUPERVISOR, urgent care, hospital, or shelter...) When possible be specific @ -[No] Did you speak to anyone other than the patient for history (EMS, parent, family, police, friend...)? What history was obtained from this source @ -[No] Did you review nursing and triage notes (agree or disagree)? Why? @ -[I reviewed and agree with nursing and triage notes] Were old charts reviewed (outside hosp., previous admission, EMS record, old EKG, old radiological studies, urgent care reports/EKG's, shelter records)? Report findings @ -[No old charts were reviewed] Differential Diagnosis (chest pain, altered mental status, abdominal pain women, abdominal pain men, vaginal bleeding, weakness, fever, dyspnea, syncope, headache, dizziness, GI bleed, back pain, seizure, CVA, palpatations, mental health, musculoskeletal)? @ -Viral URI, streptococcal pharyngitis, pharyngitis, laryngitis EKG interpreted by me (3pts min.). @ -None X-rays interpreted by me (1pt min.). @ -[None done] CT interpreted by me (1pt min.). @ -[None done] U/S interpreted by me (1pt. min.). @ -[None done] What testing was considered but not performed or refused? (CT, X-rays, U/S, labs)? Why? @ -Recommended flu, COVID, RSV rapid testing however patient declined What meds were considered but not given or refused? Why? @ -[None] Did you discuss the management of the patient with other professionals (professionals i.e. VALENTINE Bernardo, CUSTOMER COMPLAINT SERVICE SUPERVISOR, lab, RT, psych nurse, social service coordinator, bean picker machine operator, teacher, escrow officer, case management social worker)? Give summary @ -[No] Was smoking cessation discussed for >3mins.? @ -[No] Was critical care preformed (if so, how long)? @ -[No] Were there social determinants of health that impacted care today? How? (Homelessness, low income, unemployed, alcoholism, drug addiction, transportation, low edu. Level, literacy, decrease access to med. care, group home, rehab)? @ -[No] Was there de-escalation of care discussed even if they declined (Discuss DNR or withdrawal of care, Hospice)? DNR status @ -[No] What co-morbidities impacted this encounter? (DM, HTN, Smoking, COPD, CAD, Cancer, CVA, ARF, Chemo, Hep., AIDS, mental health diagnosis, sleep apnea, morbid obesity)? @ -[None] Was patient admitted / discharged? Hospital course, mention meds given and route, prescriptions, significant lab abnormalities, going to OR and other pertinent info. @ -Patient was discharged. Patient was seen and evaluated for sore throat for 3 days. There were no sign of bacterial infection upon examination. Strep testing was negative. Patient was also seen for pain management for chronic neck and back pain. Patient was given 1 dose of [place] today. Patient was prescribed 3-day supply of [place] as well as Flexeril. Maps reviewed. Discussed with patient that she must follow-up with pain management. patient discharged in stable condition. Case discussed with Dr. Ontiveros Undiagnosed new problem with uncertain prognosis? @ -[No] Drug Therapy requiring intensive monitoring for toxicity (Heparin, Nitro, Insulin, Cardizem)? @ -[No] Were any procedures done? @ -[No] Diagnosis/symptom? @ -Viral pharyngitis, chronic neck/back pain Acute, or Chronic, or Acute on Chronic? @ -Acute Uncomplicated (without systemic symptoms) or Complicated (systemic symptoms)? @ -Complicated Side effects of treatment? @ -[No] Exacerbation, Progression, or Severe Exacerbation? @ -[No] Poses a threat to life or bodily function? How? (Chest pain, [place], [place], pneumonia, PE, COPD, DKA, ARF, appy, cholecystitis, CVA, Diverticulitis, Homicidal, Suicidal, threat to staff... and all critical care pts) @ -[No] - Lab Data Lab Results 01/09/24 Range/Units 16:10 Group A Strep (PCR) NOT DETECTED (Not Detectd) Disposition Clinical Impression: Viral pharyngitis, Back pain Disposition: HOME SELF-CARE Condition: Stable Instructions (If sedation given, give patient instructions): Pharyngitis (ED) Additional Instructions: Please return to the Emergency Department if symptoms worsen or any other concerns. Please follow-up with pain management. Prescriptions: Cyclobenzaprine [Flexeril] 10 mg PO TID PRN #15 tab PRN Reason: Muscle Spasm HYDROcodone/APAP 7.5-325MG [[place] 7.5-325] 1 tab PO Q6HR PRN 3 Days #12 tab PRN Reason: Pain Is patient prescribed a controlled substance at d/c from ED?: Yes When asked, does pt state using other controlled substances?: No If prescribed controlled substance>3 days was MAPS reviewed?: Prescribed <3 Days If opioid is for acute pain is fill amount 7 days or less?: Yes Referrals: Priyanka Boone DO [Primary Care Provider] - 1-2 days Time of Disposition: 17:28
[2024-01-09 17:43] VITALS: BP 128/80; PULSE 93; RESP 18
== END 2024-01-09 17:32 | disposition home or self-care (01) ==
LOC: EC 15:40
DX: M54.9 Dorsalgia, unspecified (principal); B97.89 Other viral agents as the cause of diseases classified elsewhere; F17.200 Nicotine dependence, unspecified, uncomplicated; Z91.041 Radiographic dye allergy status; Z88.6 Allergy status to analgesic agent; Z88.5 Allergy status to narcotic agent; Z88.8 Allergy status to other drugs, medicaments and biological substances
CPT/HCPCS: 87651; 99283

== ENCOUNTER 2024-01-17 12:54 | Emergency (ER) | payer OTHER ==
--- NOTE | 2024-01-17 14:46 | ED ---
Back Pain HPI - General Chief Complaint: Back Pain/Injury Stated Complaint: Pain Managment Time Seen by Provider: 01/17/24 14:28 Source: patient, RN notes reviewed Limitations: no limitations - History of Present Illness Initial Comments: This is a 58-year-old female who presents to the emergency department for back pain and a sore throat. Patient has a longstanding history of chronic back pain and is waiting for an appointment with Dr. Millard at the end of January. She has since been coming to the emergency department every few days for a short-term refill on her [place]. Denies any new injuries or loss of bowel/bladder control or saddle anesthesia. Additionally, she has been dealing with a sore throat for the last 1-2 weeks. States that it seems to be getting worse and she has acid and pain going down her throat as well. MD Complaint: back pain - Related Data Home Medications Medication Instructions Recorded Confirmed Baclofen [Lioresal] 20 mg PO TID PRN 07/15/17 07/15/17 Morphine Sulfate ER [Ms Contin 100 mg PO Q12HR 07/15/17 07/15/17 100Mg] oxyCODONE-APAP 10-325MG [Percocet 1 tab PO BID PRN 07/15/17 07/15/17 10-325 mg] Previous Rx's Medication Instructions Recorded Albuterol Nebulized (Conc) 2.5 mg INHALATION Q6H PRN #30 neb 07/15/17 [Ventolin Nebulized (Conc)] Doxycycline Hyclate 100 mg PO BID #20 tab 07/15/17 HYDROcodone/APAP 5-325MG [[place] 1 tab PO Q6HR PRN 3 Days #12 tab 11/15/23 5-325] Cyclobenzaprine [Flexeril] 5 mg PO TID PRN #15 tablet 12/01/23 HYDROcodone/APAP 5-325MG [[place] 5] 1 each PO Q6HR PRN #12 tab 12/01/23 Lidocaine 5% Patch [Lidoderm 5% 1 each TP DAILY #10 patch 12/01/23 Patch] Cyclobenzaprine [Flexeril] 10 mg PO TID PRN #15 tab 12/12/23 HYDROcodone/APAP 5-325MG [[place] 5] 1 each PO Q6HR PRN #12 tab 12/12/23 predniSONE 50 mg PO DAILY #5 tab 12/12/23 HYDROcodone/APAP 5-325MG [[place] 1 tab PO Q6HR PRN 3 Days #12 tab 12/27/23 5-325] Cyclobenzaprine [Flexeril] 10 mg PO TID PRN #15 tab 01/09/24 HYDROcodone/APAP 7.5-325MG [[place] 1 tab PO Q6HR PRN 3 Days #12 tab 01/09/24 7.5-325] Amoxic-Pot Clav 875-125Mg 1 tab PO Q12HR 7 Days #14 tab 01/17/24 [Augmentin 875-125] Benzonatate [Tessalon Perle] 200 mg PO TID PRN #30 capsule 01/17/24 Famotidine [Pepcid] 20 mg PO DAILY #20 tablet 01/17/24 HYDROcodone/APAP 7.5-325MG [[place] 1 tab PO Q6HR PRN 3 Days #12 tab 01/17/24 7.5-325] Nystatin 100,000 Unit/ml Susp 5 ml PO QID 7 Days #473 ml 01/17/24 [Mycostatin Oral Susp] predniSONE 50 mg PO DAILY 5 Days #5 tab 01/17/24 Allergies Allergy/AdvReac Type Severity Reaction Status Date / Time iodine Allergy Severe Anaphylaxis Verified 01/17/24 13:01 hydroxyzine [From Vistaril] Allergy Unknown Verified 01/17/24 13:01 ketorolac tromethamine Allergy Anaphylaxis Verified 01/17/24 13:01 [From Toradol] tramadol Allergy Anaphylaxis Verified 01/17/24 13:01 Review of Systems ROS Statement: Those systems with pertinent positive or pertinent negative responses have been documented in the HPI. ROS Other: All systems not noted in ROS Statement are negative. Past Medical History Past Medical History: Asthma, COPD Additional Past Medical History / Comment(s): Degenerative Disk, Spina Bifida, neuropathy History of Any Multi-Drug Resistant Organisms: None Reported Past Surgical History: Hysterectomy Additional Past Surgical History / Comment(s): Left knee x3 left shoulder x2, neck fusion, wrist surgery due to laceration Past Psychological History: Anxiety, Bipolar, Depression Smoking Status: Current every day smoker Past Alcohol Use History: None Reported Past Drug Use History: None Reported General Exam Limitations: no limitations General appearance: alert, in no apparent distress Head exam: Present: atraumatic, normocephalic, normal inspection ENT exam: Present: other (Posterior pharyngeal erythema with tonsillar hypertrophy and exudates. There are also white patches on her tongue.) Respiratory exam: Present: normal lung sounds bilaterally. Absent: respiratory distress, wheezes, rales, rhonchi, stridor Cardiovascular Exam: Present: regular rate, normal rhythm, normal heart sounds. Absent: systolic murmur, diastolic murmur, rubs, gallop, clicks Neurological exam: Present: alert, oriented X3, CN II-XII intact Psychiatric exam: Present: normal affect, normal mood Skin exam: Present: warm, dry, intact, normal color. Absent: rash Course Vital Signs 01/17/24 01/17/24 12:59 16:59 Temperature 98.2 F 98.5 F Pulse Rate 105 H 91 Respiratory 20 14 Rate Blood Pressure 145/88 137/81 O2 Sat by Pulse 97 Oximetry Medical Decision Making - Medical Decision Making This is a 58-year-old female who presents to the emergency department for back pain and a sore throat. Was pt. sent in by a medical professional or institution? @ -No Did you speak to anyone other than the patient for history? @ -No Did you review nursing and triage notes? @ -Yes, and I agree, it is accurate with regards to the patient's symptoms. Were old charts reviewed? @ -No Differential Diagnosis? @ -Differential Back Pain: Strain, zoster, cauda equina syndrome, epidural abscess, vertebral osteomyelitis, discitis, fracture, subluxation, disc herniation, DJD, spinal stenosis, dissection, AAA, pancreatitis, peptic ulcer disease, pyelonephritis, kidney stone, this is not meant to be an all-inclusive list. EKG interpreted by me (3pts min.)? @ -Not obtained X-rays interpreted by me (1pt min.)? @ -Not obtained CT interpreted by me (1pt min.)? @ -Not obtained U/S interpreted by me (1pt. min.)? @ -Not obtained What testing was considered but not performed? (CT, X-rays, U/S, labs)? Why? @ -None What meds were considered but not given? Why? @ -None Did you discuss the management of the patient with other professionals? @ -No Did you reconcile home meds? @ -No Was smoking cessation discussed for >3mins.? @ -I discussed smoking cessation for greater than 3 minutes. The risk of smoking were discussed with the patient including but not limited to risks of cancer, stroke, coronary artery disease and COPD. Also discussed with patient were multiple methods of quitting smoking. Lastly we discussed the financial cost of smoking. Was critical care preformed (if so, how long)? @ -No Were there social determinants of health that impacted care today? How? (Homelessness, low income, unemployed, alcoholism, drug addiction, transportation, low edu. Level, literacy, decrease access to med. care, fdc, rehab)? @ -No Was there de-escalation of care discussed even if they declined? (Discuss DNR or withdrawal of care, Hospice)? @ -No What co-morbidities impacted this encounter? (DM, HTN, Smoking, COPD, CAD, Cancer, CVA, Hep., AIDS, mental health diagnosis, sleep apnea, morbid obesity)? @ -Chronic back pain, smoking, asthma, COPD Was patient admitted / discharged? @ -Discharged. COVID, influenza, and RSV testing were negative. Rapid strep test negative. However, physical examination is concerning for possible strep pharyngitis, and given the duration of her symptoms, we will start the patient on antibiotic management in the event this is a false negative. She does also have white patches on her tongue and a foul taste in her mouth, which could be consistent with oral candidiasis. Prescription for Augmentin, nystatin, prednisone, and Tessalon Perles provided with dosing instructions reviewed. Prescription for short-term refill on her [place] provided as well. She is advised to continue taking this sparingly when her pain is the most severe. She also requested a prescription to help with her acid reflux. Famotidine was prescribed. Also advised [id number] pantoprazole or omeprazole if needed. Undiagnosed new problem with uncertain prognosis? @ -None Drug Therapy requiring intensive monitoring for toxicity (Heparin, Nitro, Insulin, Cardizem)? @ -None Were any procedures done? @ -None Diagnosis/symptom? @ -Back pain Acute, or Chronic, or Acute on Chronic? @ -Chronic Uncomplicated (without systemic symptoms) or Complicated (systemic symptoms)? @ -Uncomplicated Side effects of treatment? @ -None Exacerbation, Progression, or Severe Exacerbation] @ -Not applicable Poses a threat to life or bodily function? @ -The pain impacts her ability to function Diagnosis/symptom? @ -Pharyngitis, oral candidiasis Acute, or Chronic, or Acute on Chronic? @ -Acute Uncomplicated (without systemic symptoms) or Complicated (systemic symptoms)? @ -Uncomplicated Side effects of treatment? @ -None Exacerbation, Progression, or Severe Exacerbation] @ -Not applicable Poses a threat to life or bodily function? @ -No Return precautions reviewed in depth, the patient is instructed to return to the emergency department with any new, worsening, or concerning symptoms. Patient verbalized understanding. This case was discussed in detail with the attending ED physician, Dr. Centeno. Presentation, findings, and treatment plan discussed in detail as well. - Lab Data Lab Results 01/17/24 01/17/24 Range/Units 15:06 15:06 Influenza Type A (PCR) Not Detected (Not Detectd) Influenza Type B (PCR) Not Detected (Not Detectd) RSV (PCR) Not Detected (Not Detectd) SARS-CoV-2 (PCR) Not Detected (Not Detectd) Group A Strep (PCR) NOT DETECTED (Not Detectd) Disposition Clinical Impression: Chronic back pain, Pharyngitis, Oral thrush, Nicotine dependence, Esophageal reflux Disposition: HOME SELF-CARE Instructions (If sedation given, give patient instructions): Pharyngitis (ED), Oral Candidiasis (ED) Additional Instructions: Return to the emergency department with any new, worsening, or concerning symptoms. Take the antibiotic as prescribed for 7 days. Take the steroid daily for 5 days. Take the nystatin 4 times daily for 7 days. Take the Tessalon Perles up to every 8 hours as needed for coughing. Take the famotidine daily for the acid reflux. If this is not effective you can purchase [id number] omeprazole or pantoprazole. Use the Ciprodex drops provided as 4 drops to both ears twice daily for 7 days. Follow up with your primary care provider in 1-2 days. Prescriptions: Amoxic-Pot Clav 875-125Mg [Augmentin 875-125] 1 tab PO Q12HR 7 Days #14 tab Nystatin 100,000 Unit/ml Susp [Mycostatin Oral Susp] 5 ml PO QID 7 Days #473 ml HYDROcodone/APAP 7.5-325MG [[place] 7.5-325] 1 tab PO Q6HR PRN 3 Days #12 tab PRN Reason: Pain Famotidine [Pepcid] 20 mg PO DAILY #20 tablet predniSONE 50 mg PO DAILY 5 Days #5 tab Benzonatate [Tessalon Perle] 200 mg PO TID PRN #30 capsule PRN Reason: Cough Is patient prescribed a controlled substance at d/c from ED?: Yes When asked, does pt state using other controlled substances?: No If prescribed controlled substance>3 days was MAPS reviewed?: Prescribed <3 Days Referrals: Arash Boone MD [Primary Care Provider] - 1-2 days Time of Disposition: 16:28
[2024-01-17] MEDS: AMOXIC-POT CLAV 875-125MG 1 EACH TAB PO STA (15:11)
[2024-01-17] MEDS: BENZONATATE 100 MG CAP PO STA (15:11)
[2024-01-17] MEDS: DEXAMETHASONE SOD PHOSPHATE 10 MG/ML 1 ML VIAL IM STA (15:12)
[2024-01-17] MEDS: HYDROmorphone 1 MG/ML 1 ML SYRINGE IM STA (15:19)
[2024-01-17] MEDS: MAG HYDROX/AL HYDROX/SIMETH 30 ML, HYOSCYAMINE ELIXIR 10 ML, LIDOCAINE VISCOUS 2% 10 ML PO STA (16:16)
[2024-01-17] MEDS: HYDROcodone/APAP 7.5-325MG 1 EACH TAB PO ONE (16:44)
[2024-01-17] MEDS: CIPROFLOXACIN-DEXAMETH 0.3-0.1% DROPS 7.5 ML BTL BOTH EARS STA (16:49)
[2024-01-17 17:20] VITALS: BP 137/81; PULSE 91; RESP 14; TEMP 98.5
== END 2024-01-17 17:01 | disposition home or self-care (01) ==
LOC: EC 12:54 → SUPCPDRO 12:54 → EC 17:01
DX: G89.29 Other chronic pain (principal); M54.9 Dorsalgia, unspecified; J02.9 Acute pharyngitis, unspecified; B37.0 Candidal stomatitis; K21.9 Gastro-esophageal reflux disease without esophagitis; F17.200 Nicotine dependence, unspecified, uncomplicated; Z88.5 Allergy status to narcotic agent; Z88.8 Allergy status to other drugs, medicaments and biological substances; Z91.041 Radiographic dye allergy status
CPT/HCPCS: 87651; 87636; 99283; 96372 ×2; 99406; J1100; J1170

== ENCOUNTER 2024-01-29 20:02 | Emergency (ER) | payer OTHER ==
[2024-01-29 21:07] VITALS: BP 158/83; PULSE 105; RESP 18; TEMP 98.2
[2024-01-29] MEDS: HYDROcodone/APAP 5-325MG 1 EACH TAB PO STA (21:45)
--- NOTE | 2024-01-29 21:48 | ED ---
ENT HPI - General Chief complaint: ENT Stated complaint: Throat issues,Pain Managment Time Seen by Provider: 01/29/24 20:39 Source: patient Mode of arrival: ambulatory Limitations: no limitations - History of Present Illness Initial comments: -year-old female presents to the ED with complaints of sore throat and pain management. Patient recently seen here few days ago and was given a prescription for antibiotics and antifungals for sore throat. Also had complaints of cough. Reports since then symptoms have mostly resolved however not completely resolved and states that she will be following up with ENT. Patient reports that she is primarily here secondary to chronic pain of her neck back and legs. Reports that she would like to have a short course of Phoenix. Reports that she finally has appointment with pain management at the end of this week. No saddle anesthesia or incontinence. No fever or chills. No chest pain shortness of breath. No other complaints at this time. - Related Data Home Medications Medication Instructions Recorded Confirmed Baclofen [Lioresal] 20 mg PO TID PRN 07/15/17 07/15/17 Morphine Sulfate ER [Ms Contin 100 mg PO Q12HR 07/15/17 07/15/17 100Mg] oxyCODONE-APAP 10-325MG [Percocet 1 tab PO BID PRN 07/15/17 07/15/17 10-325 mg] Previous Rx's Medication Instructions Recorded Albuterol Nebulized (Conc) 2.5 mg INHALATION Q6H PRN #30 neb 07/15/17 [Ventolin Nebulized (Conc)] Doxycycline Hyclate 100 mg PO BID #20 tab 07/15/17 HYDROcodone/APAP 5-325MG [P[place]enix 1 tab PO Q6HR PRN 3 Days #12 tab 11/15/23 5-325] Cyclobenzaprine [Flexeril] 5 mg PO TID PRN #15 tablet 12/01/23 HYDROcodone/APAP 5-325MG [[place] 5] 1 each PO Q6HR PRN #12 tab 12/01/23 Lidocaine 5% Patch [Lidoderm 5% 1 each TP DAILY #10 patch 12/01/23 Patch] Cyclobenzaprine [Flexeril] 10 mg PO TID PRN #15 tab 12/12/23 HYDROcodone/APAP 5-325MG [[place] 5] 1 each PO Q6HR PRN #12 tab 12/12/23 predniSONE 50 mg PO DAILY #5 tab 12/12/23 HYDROcodone/APAP 5-325MG [[place] 1 tab PO Q6HR PRN 3 Days #12 tab 12/27/23 5-325] Cyclobenzaprine [Flexeril] 10 mg PO TID PRN #15 tab 01/09/24 HYDROcodone/APAP 7.5-325MG [[place] 1 tab PO Q6HR PRN 3 Days #12 tab 01/09/24 7.5-325] Amoxic-Pot Clav 875-125Mg 1 tab PO Q12HR 7 Days #14 tab 01/17/24 [Augmentin 875-125] Benzonatate [Tessalon Perle] 200 mg PO TID PRN #30 capsule 01/17/24 Famotidine [Pepcid] 20 mg PO DAILY #20 tablet 01/17/24 HYDROcodone/APAP 7.5-325MG [[place] 1 tab PO Q6HR PRN 3 Days #12 tab 01/17/24 7.5-325] Nystatin 100,000 Unit/ml Susp 5 ml PO QID 7 Days #473 ml 01/17/24 [Mycostatin Oral Susp] predniSONE 50 mg PO DAILY 5 Days #5 tab 01/17/24 Benzonatate [Tessalon Perle] 200 mg PO TID #12 capsule 01/29/24 HYDROcodone/APAP 5-325MG [P[place] 5] 1 each PO Q6HR PRN #12 tab 01/29/24 Allergies Allergy/AdvReac Type Severity Reaction Status Date / Time iodine Allergy Severe Anaphylaxis Verified 01/29/24 20:29 bee venom protein (honey bee) Allergy Anaphylaxis Verified 01/29/24 20:29 hydroxyzine [From Vistaril] Allergy Unknown Verified 01/29/24 20:29 ketorolac tromethamine Allergy Anaphylaxis Verified 01/29/24 20:29 [From Toradol] tramadol Allergy Anaphylaxis Verified 01/29/24 20:29 Review of Systems ROS Statement: Those systems with pertinent positive or pertinent negative responses have been documented in the HPI. ROS Other: All systems not noted in ROS Statement are negative. Past Medical History Past Medical History: Asthma, COPD Additional Past Medical History / Comment(s): Degenerative Disk, Spina Bifida, neuropathy History of Any Multi-Drug Resistant Organisms: None Reported Past Surgical History: Hysterectomy Additional Past Surgical History / Comment(s): Left knee x3 left shoulder x2, neck fusion, wrist surgery due to laceration Past Psychological History: Anxiety, Bipolar, Depression Smoking Status: Current every day smoker Past Alcohol Use History: None Reported Past Drug Use History: None Reported General Exam Limitations: no limitations General appearance: alert, in no apparent distress ENT exam: Present: normal oropharynx Neck exam: Present: normal inspection Respiratory exam: Present: normal lung sounds bilaterally Cardiovascular Exam: Present: regular rate GI/Abdominal exam: Present: soft, normal bowel sounds (A what). Absent: distended, tenderness, guarding, rebound, rigid Neurological exam: Present: alert, oriented X3 Skin exam: Present: warm, dry Course Vital Signs 01/29/24 20:29 Temperature 98.2 F Pulse Rate 105 H Respiratory 18 Rate Blood Pressure 158/83 O2 Sat by Pulse 97 Oximetry Medical Decision Making - Medical Decision Making Was pt. sent in by a medical professional or institution (, PA, EMBEDDED FIRMWARE ENGINEER, urgent care, hospital, or long-term...) When possible be specific @ -No Did you speak to anyone other than the patient for history (EMS, parent, family, police, friend...)? What history was obtained from this source @ -No Did you review nursing and triage notes (agree or disagree)? Why? @ -I reviewed and agree with nursing and triage notes Were old charts reviewed (outside hosp., previous admission, EMS record, old EKG, old radiological studies, urgent care reports/EKG's, long-term records)? Report findings @ -Reviewed prior visits, patient frequently here for chronic pain. Differential Diagnosis (chest pain, altered mental status, abdominal pain women, abdominal pain men, vaginal bleeding, weakness, fever, dyspnea, syncope, headache, dizziness, GI bleed, back pain, seizure, CVA, palpatations, mental health, musculoskeletal)? @ -Differential Back Pain: Strain, zoster, cauda equina syndrome, epidural abscess, vertebral osteomyelitis, discitis, fracture, subluxation, disc herniation, DJD, spinal stenosis, dissection, AAA, pancreatitis, peptic ulcer disease, pyelonephritis, kidney stone, this is not meant to be an all-inclusive list. EKG interpreted by me (3pts min.). @ -None X-rays interpreted by me (1pt min.). @ -None done CT interpreted by me (1pt min.). @ -None done U/S interpreted by me (1pt. min.). @ -None done What testing was considered but not performed or refused? (CT, X-rays, U/S, labs)? Why? @ -None What meds were considered but not given or refused? Why? @ -None Did you discuss the management of the patient with other professionals (professionals i.e. DrDwight, PA, EMBEDDED FIRMWARE ENGINEER, lab, RT, psych nurse, social media sr strategy manager, continuous absorption process operator, teacher, pharmaceutical officer, case mgr)? Give summary @ -No Was smoking cessation discussed for >3mins.? @ -No Was critical care preformed (if so, how long)? @ -No Were there social determinants of health that impacted care today? How? (Homelessness, low income, unemployed, alcoholism, drug addiction, transportation, low edu. Level, literacy, decrease access to med. care, usp, rehab)? @ -No Was there de-escalation of care discussed even if they declined (Discuss DNR or withdrawal of care, Hospice)? DNR status @ -No What co-morbidities impacted this encounter? (DM, HTN, Smoking, COPD, CAD, Cancer, CVA, ARF, Chemo, Hep., AIDS, mental health diagnosis, sleep apnea, morbid obesity)? @ -None Was patient admitted / discharged? Hospital course, mention meds given and route, prescriptions, significant lab abnormalities, going to OR and other pertinent info. @ -Discharge 58-year-old female presenting to the ED with complaints of sore throat cough, and chronic pain. In regards to sore throat and cough reports symptoms have mostly resolved however reports that she would like an additional prescription for Tessalon Perles. Also requesting short course of Phoenix as she is not been able to follow-up with pain management yet but notes she has follow-up with them on Thursday. Provided prescription of Tessalon Perles and [place]. Denies any new injury or trauma. Discharged home in stable condition with instructions to follow-up with pain management and ENT as scheduled. Discussed return precautions with patient who verbalized agreement. Undiagnosed new problem with uncertain prognosis? @ -No Drug Therapy requiring intensive monitoring for toxicity (Heparin, Nitro, Insulin, Cardizem)? @ -No Were any procedures done? @ -No Diagnosis/symptom? @ -Chronic pain, sore throat, cough Acute, or Chronic, or Acute on Chronic? @ -Acute on chronic Uncomplicated (without systemic symptoms) or Complicated (systemic symptoms)? @ -Uncomplicated Side effects of treatment? @ -No Exacerbation, Progression, or Severe Exacerbation? @ -No Poses a threat to life or bodily function? How? (Chest pain, [place], [place], pneumonia, PE, COPD, DKA, ARF, appy, cholecystitis, CVA, Diverticulitis, Homicidal, Suicidal, threat to staff... and all critical care pts) @ -No Disposition Clinical Impression: Sore throat, Back pain Disposition: HOME SELF-CARE Condition: Good Additional Instructions: Please return to the Emergency Department if symptoms worsen or any other concerns. Please follow-up with your PCP, ENT, and pain management as scheduled. Prescriptions: HYDROcodone/APAP 5-325MG [[place] 5] 1 each PO Q6HR PRN #12 tab PRN Reason: Pain Benzonatate [Tessalon Perle] 200 mg PO TID #12 capsule Is patient prescribed a controlled substance at d/c from ED?: Yes If prescribed controlled substance>3 days was MAPS reviewed?: Prescribed <3 Days Referrals: Arash Boone MD [Primary Care Provider] - 1-2 days Time of Disposition: 21:52
== END 2024-01-29 21:50 | disposition home or self-care (01) ==
LOC: EC 20:02
DX: J02.9 Acute pharyngitis, unspecified (principal); M54.9 Dorsalgia, unspecified; F17.200 Nicotine dependence, unspecified, uncomplicated; Z91.041 Radiographic dye allergy status; Z88.5 Allergy status to narcotic agent; Z88.6 Allergy status to analgesic agent; Z91.030 Bee allergy status; Z88.8 Allergy status to other drugs, medicaments and biological substances
CPT/HCPCS: 99283

== ENCOUNTER 2024-02-02 19:49 | Emergency (ER) | payer OTHER ==
[2024-02-02 20:08] LABS: Glucose,Whole Blood 394 mg/dL (70-110)
[2024-02-02 20:26] VITALS: TEMP 98.3
[2024-02-02 20:39] LABS: Basophils # (A) 0.1 k/uL (0-0.2); Basophils % (A) 1 %; Eosinophils # (A) 0.1 k/uL (0-0.7); Eosinophils % (A) 2 %; HCT 46.3 % (34.0-46.0); HGB 15.3 gm/dL (11.4-16.0); Lymphocytes # (A) 2.3 k/uL (1.0-4.8); Lymphocytes % (A) 35 %; MCH 30.8 pg (25.0-35.0); MCV 93.3 fL (80.0-100.0); Mean Platelet Volume 13.2; Monocytes # (A) 0.4 k/uL (0-1.0); Monocytes % (A) 5 %; Neutrophils # (A) 3.7 k/uL (1.3-7.7); Neutrophils % (A) 55 %; Platelet Count 128 k/uL (150-450); RBC 4.97 m/uL (3.80-5.40); RDW 12.9 % (11.5-15.5); WBC 6.6 k/uL (3.8-10.6)
[2024-02-02] MEDS: SODIUM CHLORIDE 0.9% 2,000 ML IV ONE (20:48)
[2024-02-02 21:08] LABS: ALT 27 U/L (4-34); AST 21 U/L (14-36); African American GFR (CKD) >90 (>60 ml/min/1.73 sqM); Albumin 3.9 g/dL (3.5-5.0); Alkaline Phosphatase 99 U/L (38-126); Anion Gap 6 mmol/L; Blood Urea Nitrogen 18 mg/dL (7-17); Calcium 9.3 mg/dL (8.4-10.2); Carbon Dioxide 23 mmol/L (22-30); Chloride 100 mmol/L (98-107); Glucose 353 mg/dL (74-99); Non-African American GFR(CKD) >90 (>60 ml/min/1.73 sqM); Potassium 4.4 mmol/L (3.5-5.1); Sodium 129 mmol/L (137-145); Total Bilirubin 0.3 mg/dL (0.2-1.3); Total Protein 6.9 g/dL (6.3-8.2)
[2024-02-02] MEDS: oxyCODONE-APAP 10-325MG 1 EACH TAB PO STA (21:30)
--- NOTE | 2024-02-02 22:03 | ED ---
General Adult HPI - General Chief complaint: Recheck/Abnormal Lab/Rx Stated complaint: Hyperglycemia Time Seen by Provider: 02/02/24 20:25 Source: patient, EMS Mode of arrival: EMS Limitations: no limitations - History of Present Illness Initial comments: This patient is a 58-year-old woman with history of type 2 diabetes, currently untreated, who presents with complaint that her blood sugar was elevated. The patient states that years ago she had been diagnosed with diabetes and had been taking metformin. The patient did not like the way the metformin made her feel, so she states she stopped the medicine, adjusted her diet and found that her blo od sugars were "okay." Patient states that a number days ago she was diagnosed with sore throat, and that she has been drinking milkshakes because they are cold and soothe her throat. The patient also reports polyuria, and fatigue. -: days(s) Radiation: other (Throat) Quality: burning Consistency: constant Improves with: other (Drinking cold liquid) Worsens with: none Associated Symptoms: denies other symptoms Treatments Prior to Arrival: none - Related Data Home Medications Medication Instructions Recorded Confirmed Baclofen [Lioresal] 20 mg PO TID PRN 07/15/17 07/15/17 Morphine Sulfate ER [Ms Contin 100 mg PO Q12HR 07/15/17 07/15/17 100Mg] oxyCODONE-APAP 10-325MG [Percocet 1 tab PO BID PRN 07/15/17 07/15/17 10-325 mg] Previous Rx's Medication Instructions Recorded Albuterol Nebulized (Conc) 2.5 mg INHALATION Q6H PRN #30 neb 07/15/17 [Ventolin Nebulized (Conc)] Doxycycline Hyclate 100 mg PO BID #20 tab 07/15/17 HYDROcodone/APAP 5-325MG [[place]pson 1 tab PO Q6HR PRN 3 Days #12 tab 11/15/23 5-325] Cyclobenzaprine [Flexeril] 5 mg PO TID PRN #15 tablet 12/01/23 HYDROcodone/APAP 5-325MG [[place]pson 5] 1 each PO Q6HR PRN #12 tab 12/01/23 Lidocaine 5% Patch [Lidoderm 5% 1 each TP DAILY #10 patch 12/01/23 Patch] Cyclobenzaprine [Flexeril] 10 mg PO TID PRN #15 tab 12/12/23 HYDROcodone/APAP 5-325MG [[place]pson 5] 1 each PO Q6HR PRN #12 tab 12/12/23 predniSONE 50 mg PO DAILY #5 tab 12/12/23 HYDROcodone/APAP 5-325MG [[place]pson 1 tab PO Q6HR PRN 3 Days #12 tab 12/27/23 5-325] Cyclobenzaprine [Flexeril] 10 mg PO TID PRN #15 tab 01/09/24 HYDROcodone/APAP 7.5-325MG [[place]pson 1 tab PO Q6HR PRN 3 Days #12 tab 01/09/24 7.5-325] Amoxic-Pot Clav 875-125Mg 1 tab PO Q12HR 7 Days #14 tab 01/17/24 [Augmentin 875-125] Benzonatate [Tessalon Perle] 200 mg PO TID PRN #30 capsule 01/17/24 Famotidine [Pepcid] 20 mg PO DAILY #20 tablet 01/17/24 HYDROcodone/APAP 7.5-325MG [[place] 1 tab PO Q6HR PRN 3 Days #12 tab 01/17/24 7.5-325] Nystatin 100,000 Unit/ml Susp 5 ml PO QID 7 Days #473 ml 01/17/24 [Mycostatin Oral Susp] predniSONE 50 mg PO DAILY 5 Days #5 tab 01/17/24 Benzonatate [Tessalon Perle] 200 mg PO TID #12 capsule 01/29/24 HYDROcodone/APAP 5-325MG [[place] 5] 1 each PO Q6HR PRN #12 tab 01/29/24 Nystatin 100,000 Unit/ml Susp 5 ml PO QID #200 ml 02/02/24 [Mycostatin Oral Susp] Allergies Allergy/AdvReac Type Severity Reaction Status Date / Time iodine Allergy Severe Anaphylaxis Verified 02/02/24 20:05 bee venom protein (honey bee) Allergy Anaphylaxis Verified 02/02/24 20:05 hydroxyzine [From Vistaril] Allergy Unknown Verified 02/02/24 20:05 ketorolac tromethamine Allergy Anaphylaxis Verified 02/02/24 20:05 [From Toradol] tramadol Allergy Anaphylaxis Verified 02/02/24 20:05 Review of Systems ROS Statement: Those systems with pertinent positive or pertinent negative responses have been documented in the HPI. ROS Other: All systems not noted in ROS Statement are negative. Constitutional: Denies: fever, chills, weakness ENT: Reports: throat pain. Denies: ear pain, hearing loss, congestion Respiratory: Denies: cough, dyspnea, wheezes Cardiovascular: Denies: chest pain, palpitations, edema Gastrointestinal: Denies: abdominal pain, vomiting, diarrhea Genitourinary: Denies: dysuria, hematuria Musculoskeletal: Denies: back pain Skin: Denies: rash Neurological: Denies: headache Past Medical History Past Medical History: Asthma, Heart Failure, COPD Additional Past Medical History / Comment(s): Degenerative Disk, Spina Bifida, neuropathy History of Any Multi-Drug Resistant Organisms: None Reported Past Surgical History: Hysterectomy Additional Past Surgical History / Comment(s): Left knee x3 left shoulder x2, neck fusion, wrist surgery due to laceration Past Psychological History: Anxiety, Bipolar, Depression Smoking Status: Current every day smoker Past Alcohol Use History: None Reported Past Drug Use History: None Reported General Exam Limitations: no limitations General appearance: alert, in no apparent distress Head exam: Present: atraumatic, normocephalic Eye exam: Present: normal appearance. Absent: scleral icterus, conjunctival injection ENT exam: Present: mucous membranes dry Neck exam: Present: normal inspection, full ROM. Absent: tenderness, meningismus Respiratory exam: Present: normal lung sounds bilaterally. Absent: respiratory distress, wheezes, rales, rhonchi, stridor, accessory muscle use Cardiovascular Exam: Present: regular rate, normal rhythm, normal heart sounds. Absent: systolic murmur, diastolic murmur, rubs, gallop GI/Abdominal exam: Present: soft. Absent: distended, tenderness, guarding, rebound, rigid, mass Extremities exam: Present: normal inspection, normal capillary refill. Absent: pedal edema, calf tenderness Back exam: Present: normal inspection. Absent: CVA tenderness (R), CVA tenderness (L) Neurological exam: Present: alert Skin exam: Present: warm, dry, intact, normal color. Absent: rash Course Vital Signs 02/02/24 02/02/24 20:05 23:40 Temperature 98.3 F Pulse Rate 86 80 Respiratory 20 16 Rate Blood Pressure 128/83 166/83 O2 Sat by Pulse 96 96 Oximetry Medical Decision Making - Medical Decision Making Was pt. sent in by a medical professional or institution (, VALENTINE, COMMUNITY NUTRITION EDUCATOR, urgent care, hospital, or retirement...) When possible be specific @ -[No] Did you speak to anyone other than the patient for history (EMS, parent, family, police, friend...)? What history was obtained from this source @ -[No] Did you review nursing and triage notes (agree or disagree)? Why? @ -[I reviewed and agree with nursing and triage notes] Were old charts reviewed (outside hosp., previous admission, EMS record, old EKG, old radiological studies, urgent care reports/EKG's, retirement records)? Report findings @ -[No old charts were reviewed] Differential Diagnosis (chest pain, altered mental status, abdominal pain women, abdominal pain men, vaginal bleeding, weakness, fever, dyspnea, syncope, headache, dizziness, GI bleed, back pain, seizure, CVA, palpatations, mental health, musculoskeletal)? @ -[Amphetamine Toxicity Anxiety Disorders Apnea, Sleep Cocaine-Related Cardiomyopathy Heart Failure Hyperthyroidism, Thyroid Storm, and Graves Disease Hypertrophic Cardiomyopathy Myocardial Infarction Phencyclidine Toxicity Primary Aldosteronism Stroke, Hemorrhagic Stroke, Ischemic EKG interpreted by me (3pts min.). @ -[As above] X-rays interpreted by me (1pt min.). @ -[None done] CT interpreted by me (1pt min.). @ -[None done] U/S interpreted by me (1pt. min.). @ -[None done] What testing was considered but not performed or refused? (CT, X-rays, U/S, labs)? Why? @ -[None] What meds were considered but not given or refused? Why? @ -[None] Did you discuss the management of the patient with other professionals ( professionals i.e. VALENTINE Bernardo, COMMUNITY NUTRITION EDUCATOR, lab, RT, psych nurse, addiction social worker, transferrer, teacher, loan review officer, case management manager)? Give summary @ -[No] Was smoking cessation discussed for >3mins.? @ -[No] Was critical care preformed (if so, how long)? @ -[No] Were there social determinants of health that impacted care today? How? (Homelessness, low income, unemployed, alcoholism, drug addiction, transportati on, low edu. Level, literacy, decrease access to med. care, long-term, rehab)? @ -[No] Was there de-escalation of care discussed even if they declined (Discuss DNR or withdrawal of care, Hospice)? DNR status @ -[No] What co-morbidities impacted this encounter? (DM, HTN, Smoking, COPD, CAD, Cancer, CVA, ARF, Chemo, Hep., AIDS, mental health diagnosis, sleep apnea, morbid obesity)? @ -[Diabetes Was patient admitted / discharged? Hospital course, mention meds given and route, prescriptions, significant lab abnormalities, going to OR and other pertinent info. @ -[Patient is 58-year-old woman with history of diabetes currently untreated. She is found to be moderately hyperglycemic. She did have response to IV fluid and insulin. The patient also with some throat and substernal burning pain joshua pected due to thrush and the patient will be started on antifungal as well. She is declining to go back on the metformin so patient to follow-up with primary physician to start other diabetes regimen. discussed return parameters should there be any difficulty in following up Undiagnosed new problem with uncertain prognosis? @ -[No] Drug Therapy requiring intensive monitoring for toxicity (Heparin, Nitro, Insulin, Cardizem)? @ -[No] Were any procedures done? @ -[No] Diagnosis/symptom? @ -[Acute hyperglycemia in diabetic patient Acute thrush Acute, or Chronic, or Acute on Chronic? @ -[Acute Uncomplicated (without systemic symptoms) or Complicated (systemic symptoms)? @ -[Uncomplicated Side effects of treatment? @ -[No] Exacerbation, Progression, or Severe Exacerbation? @ -[No] Poses a threat to life or bodily function? How? (Chest pain, [place], [place], pneumonia, PE, COPD, DKA, ARF, appy, cholecystitis, CVA, Diverticulitis, Homicidal, Suicidal, threat to staff... and all critical care pts) @ -There is risk of if there is prolonged period of no further treatment, patient understands and will follow-up - Lab Data Result diagrams: 02/02/24 20:21 02/02/24 20:49 Lab Results 02/02/24 02/02/24 02/02/24 Range/Units 20:06 20:21 20:49 WBC 6.6 (3.8-10.6) k/uL RBC 4.97 (3.80-5.40) m/uL Hgb 15.3 (11.4-16.0) gm/dL Hct 46.3 H (34.0-46.0) % MCV 93.3 (80.0-100.0) fL MCH 30.8 (25.0-35.0) pg MCHC 33.0 (31.0-37.0) g/dL RDW 12.9 (11.5-15.5) % Plt Count 128 L (150-450) k/uL MPV 13.2 Neutrophils % 55 % Lymphocytes % 35 % Monocytes % 5 % Eosinophils % 2 % Basophils % 1 % Neutrophils # 3.7 (1.3-7.7) k/uL Lymphocytes # 2.3 (1.0-4.8) k/uL Monocytes # 0.4 (0-1.0) k/uL Eosinophils # 0.1 (0-0.7) k/uL Basophils # 0.1 (0-0.2) k/uL Manual Slide Review Performed Sodium (137-145) mmol/L Potassium (3.5-5.1) mmol/L Chloride (98-107) mmol/L Carbon Dioxide (22-30) mmol/L Anion Gap mmol/L BUN (7-17) mg/dL Creatinine (0.52-1.04) mg/dL Est GFR (CKD-EPI)AfAm (>60 ml/min/1.73 sqM) Est GFR (CKD-EPI)NonAf (>60 ml/min/1.73 sqM) Glucose (74-99) mg/dL POC Glucose (mg/dL) 394 H (70-110) mg/dL POC Glu Sander Portable Machine ID Carter, Huseyin Plasma Lactic Acid Thierry (0.7-2.0) mmol/L Calcium (8.4-10.2) mg/dL Total Bilirubin (0.2-1.3) mg/dL AST (14-36) U/L ALT (4-34) U/L Alkaline Phosphatase (38-126) U/L Total Protein (6.3-8.2) g/dL Albumin (3.5-5.0) g/dL Acetone, Qual Negative (Negative) 02/02/24 02/02/24 02/02/24 Range/Units 20:49 20:49 23:37 WBC (3.8-10.6) k/uL RBC (3.80-5.40) m/uL Hgb (11.4-16.0) gm/dL Hct (34.0-46.0) % MCV (80.0-100.0) fL MCH (25.0-35.0) pg MCHC (31.0-37.0) g/dL RDW (11.5-15.5) % Plt Count (150-450) k/uL MPV Neutrophils % % Lymphocytes % % Monocytes % % Eosinophils % % Basophils % % Neutrophils # (1.3-7.7) k/uL Lymphocytes # (1.0-4.8) k/uL Monocytes # (0-1.0) k/uL Eosinophils # (0-0.7) k/uL Basophils # (0-0.2) k/uL Manual Slide Review Sodium 129 L (137-145) mmol/L Potassium 4.4 (3.5-5.1) mmol/L Chloride 100 (98-107) mmol/L Carbon Dioxide 23 (22-30) mmol/L Anion Gap 6 mmol/L BUN 18 H (7-17) mg/dL Creatinine 0.57 (0.52-1.04) mg/dL Est GFR (CKD-EPI)AfAm >90 (>60 ml/min/1.73 sqM) Est GFR (CKD-EPI)NonAf >90 (>60 ml/min/1.73 sqM) Glucose 353 H (74-99) mg/dL POC Glucose (mg/dL) 155 H (70-110) mg/dL POC Glu Sander Portable Machine ID Marion Wilson Plasma Lactic Acid Thierry 1.9 (0.7-2.0) mmol/L Calcium 9.3 (8.4-10.2) mg/dL Total Bilirubin 0.3 (0.2-1.3) mg/dL AST 21 (14-36) U/L ALT 27 (4-34) U/L Alkaline Phosphatase 99 (38-126) U/L Total Protein 6.9 (6.3-8.2) g/dL Albumin 3.9 (3.5-5.0) g/dL Acetone, Qual (Negative) Disposition Clinical Impression: Pharyngitis, Oral thrush, Chronic back pain, Hyperglycemia due to type 2 diabetes mellitus Disposition: HOME SELF-CARE Condition: Good Instructions (If sedation given, give patient instructions): Diabetic Hyperglycemia (ED) Prescriptions: Nystatin 100,000 Unit/ml Susp [Mycostatin Oral Susp] 5 ml PO QID #200 ml Is patient prescribed a controlled substance at d/c from ED?: No Referrals: Arash Boone MD [Primary Care Provider] - 1-2 days
[2024-02-02] MEDS: SODIUM CHLORIDE 0.9% 1,000 ML IV ONE (22:33)
[2024-02-02] MEDS: INSULIN REGULAR 100 UNIT/ML VIAL (IV) IV STA (22:35)
[2024-02-02 23:39] LABS: Glucose,Whole Blood 155 mg/dL (70-110)
[2024-02-03 00:27] VITALS: BP 166/83; PULSE 80; RESP 16
== END 2024-02-03 00:04 | disposition home or self-care (01) ==
LOC: EC 19:49
DX: G89.29 Other chronic pain (principal); M54.9 Dorsalgia, unspecified; E11.65 Type 2 diabetes mellitus with hyperglycemia; B37.0 Candidal stomatitis; J02.9 Acute pharyngitis, unspecified; E11.40 Type 2 diabetes mellitus with diabetic neuropathy, unspecified; F17.200 Nicotine dependence, unspecified, uncomplicated; Z88.5 Allergy status to narcotic agent; Z91.030 Bee allergy status; Z91.041 Radiographic dye allergy status; Z88.8 Allergy status to other drugs, medicaments and biological substances
CPT/HCPCS: 36415; 80053; 82009; 83605; 85025; 96360; 96361; 99284

== ENCOUNTER 2025-01-13 15:31 | Emergency (ER) | payer OTHER ==
[2025-01-13 15:36] VITALS: RESP 18
--- NOTE | 2025-01-13 16:08 | ED ---
General Adult HPI - General Chief complaint: Recheck/Abnormal Lab/Rx Stated complaint: Back pain Time Seen by Provider: 01/13/25 15:41 Source: patient Mode of arrival: ambulatory Limitations: no limitations - History of Present Illness Initial comments: Dictation was produced using [employer] dictation software. please excuse any grammatical, word or spelling errors. Chief Complaint: 59-year-old female requesting 2 to 3-day prescription for Percocet History of Present Illness: Patient 59-year-old female with chronic pain due to significant issues with her back and neck. States she went to her pain specialist office to get a urine test in order to get a refill on her prescription. She states that they close early and she was not able to get her prescription. States that she gets heart problems whenever she does not get her Percocet. Patient otherwise has no acute complaints. The ROS documented in this emergency department record has been reviewed and confirmed by me. Those systems with pertinent positive or negative responses have been documented in the HPI. All other systems are other negative and/or noncontributory. - Related Data Home Medications Medication Instructions Recorded Confirmed Baclofen [Lioresal] 20 mg PO TID PRN 07/15/17 07/15/17 Morphine Sulfate ER [Ms Contin 100 mg PO Q12HR 07/15/17 07/15/17 100Mg] oxyCODONE-APAP 10-325MG [Percocet 1 tab PO BID PRN 07/15/17 07/15/17 10-325 mg] Previous Rx's Medication Instructions Recorded Albuterol Nebulized (Conc) 2.5 mg INHALATION Q6H PRN #30 neb 07/15/17 [Ventolin Nebulized (Conc)] Doxycycline Hyclate 100 mg PO BID #20 tab 07/15/17 HYDROcodone/APAP 5-325MG [Timbo 1 tab PO Q6HR PRN 3 Days #12 tab 11/15/23 5-325] Cyclobenzaprine [Flexeril] 5 mg PO TID PRN #15 tablet 12/01/23 HYDROcodone/APAP 5-325MG [Timbo 5] 1 each PO Q6HR PRN #12 tab 12/01/23 Lidocaine 5% Patch [Lidoderm 5% 1 each TP DAILY #10 patch 12/01/23 Patch] Cyclobenzaprine [Flexeril] 10 mg PO TID PRN #15 tab 12/12/23 HYDROcodone/APAP 5-325MG [Timbo 5] 1 each PO Q6HR PRN #12 tab 12/12/23 predniSONE 50 mg PO DAILY #5 tab 12/12/23 HYDROcodone/APAP 5-325MG [Timbo 1 tab PO Q6HR PRN 3 Days #12 tab 12/27/23 5-325] Cyclobenzaprine [Flexeril] 10 mg PO TID PRN #15 tab 01/09/24 HYDROcodone/APAP 7.5-325MG [Timbo 1 tab PO Q6HR PRN 3 Days #12 tab 01/09/24 7.5-325] Amoxic-Pot Clav 875-125Mg 1 tab PO Q12HR 7 Days #14 tab 01/17/24 [Augmentin 875-125] Benzonatate [Tessalon Perle] 200 mg PO TID PRN #30 capsule 01/17/24 Famotidine [Pepcid] 20 mg PO DAILY #20 tablet 01/17/24 HYDROcodone/APAP 7.5-325MG [Timbo 1 tab PO Q6HR PRN 3 Days #12 tab 01/17/24 7.5-325] Nystatin 100,000 Unit/ml Susp 5 ml PO QID 7 Days #473 ml 01/17/24 [Mycostatin Oral Susp] predniSONE 50 mg PO DAILY 5 Days #5 tab 01/17/24 Benzonatate [Tessalon Perle] 200 mg PO TID #12 capsule 01/29/24 HYDROcodone/APAP 5-325MG [Timbo 5] 1 each PO Q6HR PRN #12 tab 01/29/24 Nystatin 100,000 Unit/ml Susp 5 ml PO QID #200 ml 02/02/24 [Mycostatin Oral Susp] oxyCODONE-APAP 10-325MG [Percocet 1 tab PO Q4HR PRN 3 Days #18 tab 01/13/25 10-325 mg] Allergies Allergy/AdvReac Type Severity Reaction Status Date / Time iodine Allergy Severe Anaphylaxis Verified 01/13/25 15:36 bee venom protein (honey bee) Allergy Anaphylaxis Verified 01/13/25 15:36 hydroxyzine [From Vistaril] Allergy Unknown Verified 01/13/25 15:36 ketorolac tromethamine Allergy Anaphylaxis Verified 01/13/25 15:36 [From Toradol] tramadol Allergy Anaphylaxis Verified 01/13/25 15:36 Review of Systems ROS Statement: Those systems with pertinent positive or pertinent negative responses have been documented in the HPI. ROS Other: All systems not noted in ROS Statement are negative. Past Medical History Past Medical History: Asthma, Heart Failure, COPD Additional Past Medical History / Comment(s): Degenerative Disk, Spina Bifida, neuropathy History of Any Multi-Drug Resistant Organisms: None Reported Past Surgical History: Hysterectomy Additional Past Surgical History / Comment(s): Left knee x3 left shoulder x2, neck fusion, wrist surgery due to laceration Past Psychological History: Anxiety, Bipolar, Depression Smoking Status: Current every day smoker Past Alcohol Use History: None Reported Past Drug Use History: None Reported General Exam - General Exam Comments Initial Comments: General: Well-appearing, nontoxic, no acute distress. Head: Normocephalic, atraumatic Eyes: PERRLA, EOMI ENT: Airway patent Chest: Nonlabored breathing Skin: No visual rash, normal skin tone Neuro: Alert and oriented 3 Musculoskeletal: No gross abnormalities Limitations: no limitations Course Vital Signs 01/13/25 15:32 Temperature 97.9 F Pulse Rate 99 Respiratory 18 Rate Blood Pressure 173/93 O2 Sat by Pulse 96 Oximetry Medical Decision Making - Medical Decision Making Was pt. sent in by a medical professional or institution ([facility], CHIEF LOAD DISPATCHER, urgent care, hospital, or alf...) When possible be specific @ -[No] Did you speak to anyone other than the patient for history (EMS, parent, family, police, friend...)? What history was obtained from this source @ -[No] Did you review nursing and triage notes (agree or disagree)? Why? @ -[I reviewed and agree with nursing and triage notes] Were old charts reviewed (outside hosp., previous admission, EMS record, old EKG, old radiological studies, urgent care reports/EKG's, alf records)? Report findings @ -[No old charts were reviewed] Differential Diagnosis (chest pain, altered mental status, abdominal pain women, abdominal pain men, vaginal bleeding, musculoskeletal, weakness, fever, dyspnea, syncope, headache, dizziness, GI bleed, back pain, seizure, CVA, palpatations, mental health)? @ -[not applicable] EKG interpreted by me (3pts min.). @ -[None done] X-rays interpreted by me (1pt min.). @ -[None done] CT interpreted by me (1pt min.). @ -[None done] U/S interpreted by me (1pt. min.). @ -[None done] What testing was considered but not performed or refused? (CT, X-rays, U/S, labs)? Why? @ -[None] What meds were considered but not given or refused? Why? @ -[None] Was smoking cessation discussed for >3mins.? @ -[No] Were there social determinants of health that impacted care today? How? (Homelessness, low income, unemployed, alcoholism, drug addiction, transportation, low edu. Level, literacy, decrease access to med. care, [facility], rehab)? @ -[No] Was there de-escalation of care discussed even if they declined (Discuss DNR or withdrawal of care, Hospice)? DNR status @ -[No] What co-morbidities impacted this encounter? (DM, HTN, Smoking, COPD, CAD, Cancer, CVA, ARF, Chemo, Hep., AIDS, mental health diagnosis, sleep apnea, morbid obesity)? @ -[None] Was patient admitted / discharged? Hospital course, mention meds given and route, prescriptions, significant lab abnormalities, going to OR and other pertinent info. @ -59-year-old female requesting 2/3-day prescription for Percocet after having issue getting her refill by her pain specialist. Patient has no other complaints. Patient well-appearing physical exam is benign. Vital signs stable. Patient given short prescription for Percocet sent to her pharmacy. Did you discuss the management of the patient with other professionals (professionals i.e. , PA, CHIEF LOAD DISPATCHER, lab, RT, psych nurse, social psychologist, supervisor detasseling crew, teacher, medical scientific officer, case packer and sealer)? Give summary @ -[No] Was critical care preformed (if so, how long)? @ -[No] Undiagnosed new problem with uncertain prognosis? @ -[No] Drug Therapy requiring intensive monitoring for toxicity (Heparin, Nitro, Insulin, Cardizem)? @ -[No] Were any procedures done? @ -[No] Diagnosis/symptom? Acute, or Chronic, or Acute on Chronic? Uncomplicated (without systemic symptoms) or Complicated (systemic symptoms)? @ -Chronic pain Side effects of treatment? @ -[No] Exacerbation, Progression, or Severe Exacerbation? @ -[No] Poses a threat to life or bodily function? How? (Chest pain, [place], [place], pneumonia, PE, COPD, DKA, ARF, appy, cholecystitis, CVA, Diverticulitis, Homicidal, Suicidal, threat to staff... and all critical care pts) @ -[No] Disposition Clinical Impression: Chronic pain Disposition: HOME SELF-CARE Condition: Fair Instructions (If sedation given, give patient instructions): Oxycodone/Acetaminophen (By mouth) Prescriptions: oxyCODONE-APAP 10-325MG [Percocet 10-325 mg] 1 tab PO Q4HR PRN 3 Days #18 tab PRN Reason: Pain Is patient prescribed a controlled substance at d/c from ED?: Yes If prescribed controlled substance>3 days was MAPS reviewed?: Prescribed <3 Days Referrals: Arahs Boone MD [Primary Care Provider] - 1-2 days Time of Disposition: 16:08
[2025-01-13 16:37] VITALS: BP 155/87; PULSE 86; TEMP 97.8
== END 2025-01-13 16:35 | disposition home or self-care (01) ==
LOC: EC 15:31
DX: G89.29 Other chronic pain (principal); M54.9 Dorsalgia, unspecified; F17.200 Nicotine dependence, unspecified, uncomplicated; Z88.5 Allergy status to narcotic agent; Z88.8 Allergy status to other drugs, medicaments and biological substances; Z91.030 Bee allergy status; Z91.041 Radiographic dye allergy status
CPT/HCPCS: 99283